=== PATIENT | male | born 1945 | race Caucasian/White ===

== ENCOUNTER 2020-07-23 08:25 | Inpatient (IN) | payer BC, MEDICARE ==
[2020-07-23] MEDS ORDERED: Temazepam 15 MG Cap PO PRN (14:21)
[2020-07-23] MEDS ORDERED: Docusate Sodium 100 MG Cap PO PRN (14:27)
[2020-07-23] MEDS ORDERED: Nitroglycerin 0.4 MG Tab.SL SL PRN (15:00)
[2020-07-23] MEDS ORDERED: Glucagon,Human Recombinant 1 MG Vial IM PRN (15:06)
[2020-07-23] MEDS ORDERED: 50% Dextrose in Water 50 ML Syringe IV PRN (15:06)
[2020-07-23] MEDS: Acetaminophen/oxyCODONE 325-5 MG Tab PO PRN (15:30)
--- NOTE | 2020-07-23 15:40 | PCM.HP.2 ---
H&P History of Present Illness - General Date of Service: 07/23/20 Admit Problem/Dx: Admission Diagnosis/Problem Admission Diagnosis/Problem Weakness Source of Information: Patient, Family (Daughter), Other ([facility] with limited transfer records from [facility]). No: Old Records (No [facility] records available) History Limitations: Reports: No Limitations - History of Present Illness Initial Comments - Free Text/Narative: The patient was brought to this facility for admission to swing bed care by his daughter via private automobile. Note that the patient recently had a non-STEMI on 07/08/2020 which did require a three-vessel CABG on 07/14/2020. No apparent complications, including required blood transfusions, etc. since that procedure with the patient transfer to this facility from [facility] for PT, OT, and further strengthening. He does complain of 5/10 sharp, throbbing chest wall pain secondary to his CABG with no local signs of infection. The patient denies any chest pressure, heart flutter, dizziness, orthostasis, orthopnea, diaphoresis, paresthesias,or any other anginal-type symptoms since the above surgery, although his overall exercise tolerance is still somewhat suboptimal at this time. No recent history of abdominal pain, heartburn, nausea, diarrhea, melena, gross hematochezia, or any food intolerance, including fatty foods, etc., although some occasional loose stools including earlier today. He denies any gross hematuria, colic, or other UTI symptoms. The patient also denies any recent fever, cough, wheezing, dyspnea, etc.. Onset of Symptoms: Reports: Gradual Symptom Onset Date: 07/08/20 Duration of Symptoms: Reports: Improving Location: Reports: Chest (Chest wall pain as above). Denies: Head, Face, Neck, Abdomen, Back, Pelvis, Upper Extremity, Left, Upper Extremity, Right, Radiates to Quality: Reports: Ache, Same as Previous Episode, Throbbing Severity: Moderate Improves with: Reports: Rest Worsens with: Reports: Movement Context: Reports: Other (As above) Associated Symptoms: Reports: Chest Pain (As above), Weakness. Denies: Confusion, Cough, cough w sputum, Diaphoresis, Fever/Chills, Headaches, Loss of Appetite, Nausea/Vomiting, Seizure, Shortness of Breath, Syncope Chest Pain Score (Numeric/FACES): 5 - Related Data Allergies/Adverse Reactions: Allergies Allergy/AdvReac Type Severity Reaction Status Date / Time procaine [From Novocain] Allergy Syncope Verified 07/23/20 12:21 Home Medications: Home Meds Acetaminophen [Tylenol Extra Strength] 1,000 mg PO BID PRN 07/23/20 [History] Aspirin [Halfprin] 81 mg PO DAILY 07/23/20 [History] Cinnamon Bark [Cinnamon] 500 mg PO BID 07/23/20 [History] Clopidogrel [Plavix] 75 mg PO DAILY 07/23/20 [History] Digoxin [Lanoxin] 125 mcg PO DAILY 07/23/20 [History] Docusate Sodium [Colace] 100 mg PO BID PRN 07/23/20 [History] Finasteride [Proscar] 5 mg PO DAILY 07/23/20 [History] Furosemide 20 mg PO DAILY 07/23/20 [History] Ketoconazole [Ketoconazole 2%] 1 applic TOP BID 07/23/20 [History] MO/Pet,Wh/Phenylephrine/Shk Lv [Preparation H Oint] 1 applic RC ASDIRECTED PRN 07/23/20 [History] Nitroglycerin 0.4 mg SL Q5M PRN MDD 3 07/23/20 [History] Non-Formulary Medication [NF Drug] 1 each PO BID 07/23/20 [History] Omeprazole 40 mg PO DAILY 07/23/20 [History] Tamsulosin HCl [Flomax] 0.4 mg PO DAILY 07/23/20 [History] Warfarin [Coumadin] 2.5 mg PO ONETIME 07/23/20 [History] atorvaSTATin [Lipitor] 40 mg PO BEDTIME 07/23/20 [History] carvediloL [Coreg] 25 mg PO BID 07/23/20 [History] glipiZIDE [Glucotrol] 10 mg PO BID 07/23/20 [History] lisinopriL [Lisinopril] 20 mg PO DAILY 07/23/20 [History] metFORMIN [Glucophage] 750 mg PO TIDMEALS 07/23/20 [History] oxyCODONE HCl/Acetaminophen [Oxycodone-Acetaminophen 5-325] 1 each PO Q6H PRN 07/23/20 [History] Past Medical History HEENT History: Reports: Hard of Hearing, Impaired Vision. Denies: Allergic Rhinitis, Cataract, Otitis Media, Retinal Detachment, Sinusitis, Other (See Below) Other HEENT History: Patient does wear glasses. Mild bilateral presbycusis with no current therapy. Cardiovascular History: Reports: Arrhythmia, Bypass, CAD, Cardiomyopathy, Heart Failure, High Cholesterol, Hypertension, OR, PTCA, Pulmonary Hypertension, PVD, Stents. Denies: Afib, Aneurysm, Blood Clots/VTE/DVT, Heart Murmur, Syncope Other Cardiovascular History: Unknown type of cardiac arrhythmia? PVCs. Left atrial enlargement, left ventricular enlargement, ischemic cardiomyopathy and initial non-STEMI with PTCA/stent x2 and 2004 and non-STEMI on 07/08/2020 which did require a CABG as below. CHF treated at the [facility]. Heart catheterization did show multivessel disease including 70-80% mid LAD stenosis, 95% second obtuse marginal stenosis and 70% proximal right CVA stenosis. Mild carotid occlusive disease by Doppler studies on 07/09/2020. Additional left- sided renal artery stenosis by renal duplex evaluation on 05/12/2003. Grade 2 diastolic dysfunction by distant echocardiogram. Respiratory History: Reports: COPD, Intubation, Previous. Denies: Asthma, Bronchitis, Recurrent, Intubation, Difficult, PE, Pneumonia, Recurrent, Pneumothorax, Sleep Apnea, TB Gastrointestinal History: Reports: Chronic Constipation, GERD, Hiatal Hernia. Denies: Celiac Disease, Cholelithiasis, Chronic Diarrhea, Colon Polyp, Diverticulosis, Fecal Incontinence, Gastritis, GI Bleed, Hemorrhoids, Hepatitis, Inflammatory Bowel Disease, Irritable Bowel Syndrome, Jaundice, Pancreatitis, PUD Genitourinary History: Reports: Acute Renal Failure, BPH, Renal Calculus, Other (See Below). Denies: Chronic Renal Insuffiency, Diabetic Nephropathy, Ret ention, Urinary, STD, Urinary Incontinence, UTI, Recurrent Other Genitourinary History: History of acute renal failure with higher doses of Metformin. Left-sided nephrolithiasis by renal ultrasound on 10/23/2013 with no history of urolithiasis. Musculoskeletal History: Reports: Arthritis, Back Pain, Chronic, Neck Pain, Chronic, Osteoarthritis. Denies: Amputation, Fracture, Gout, Osteoporosis, RA, SLE Neurological History: Reports: None. Denies: Alzheimers Disease, Cerebral Aneurysms, Concussion, CVA, Headaches, Chronic, Head Trauma, Migraines, MS, Neuropathy, Diabetic, Neuropathy, Peripheral, Parkinson's, Seizure, TIA, Vertigo Psychiatric History: Reports: None. Denies: Abuse, Victim of, ADD, ADHD, Addiction, Alzheimers Disease, Anxiety, Dementia, Depression, Psych Hospitalization(s), PTSD, Suicide Attempt, Suicidal Ideation Endocrine/Metabolic History: Reports: Diabetes, Type II, Other (See Below). Denies: Diabetes, Type I, Diabetes Mellitus, Type 3c, Hypothyroidism, IDDM, Obesity/BMI 30+ Other Endocrine/Metabolic History: No previous insulin requirement although sliding scale requirement during hospitalization for recent CABG and June 2020. Hematologic History: Reports: None. Denies: Anemia, B12 Deficiency, Blood Transfusion(s), Iron Deficiency Immunologic History: Reports: None. Denies: AIDS, SLE Oncologic (Cancer) History: Reports: None. Denies: Basal Cell Carcinoma, Bladder, Colon, Hodgkin's Lymphoma, Leukemia, Lung, Lymphoma, Malignant Melanoma, Non-Hodgkin's Lymphoma, Prostate, Squamous Cell Carcinoma Dermatologic History: Reports: None. Denies: Eczema, Psoriasis - Infectious Disease History Infectious Disease History: Reports: Chicken Pox, Mumps, Shingles (Right back region in about 2009.). Denies: C-Difficile, Measles, Meningitis, Mononucleosis, MRSA, Novel Coronavirus, Pertussis (Whooping Cough), Rheumatic Fever, Rubella, Scarlet Fever, TB, VRE - Past Surgical History Head Surgeries/Procedures: Reports: None HEENT Surgical History: Reports: None, Oral Surgery, Other (See Below). Denies: Adenoidectomy, Eye Surgery, Laser Surgery, LASIK, Myringotomy w Tube(s), Radiocarotid Ectomy, Tonsillectomy Other HEENT Surgeries/Procedures: Complete teeth extraction with complete dentures uppers and lowers. Cardiovascular Surgical History: Reports: Carotid Stents, Coronary Artery Bypass, Percutaneous Transluminal Angioplasty, Other (See Below). Denies: Varicose Other Cardiovascular Surgeries/Procedures: CABG x4 on 07/14/2020. PTCA/stent x2 in 2004. Respiratory Surgical History: Reports: None. Denies: Thoracentesis GI Surgical History: Reports: Appendectomy, Colonoscopy, Hernia, Inguinal, Other (See Below). Denies: Cholecystectomy, EGD, Hernia, Abdominal, Hernia Re pair/Other, Polypectomy, Small Bowel Other GI Surgeries/Procedures: Appendectomy at about age 6. Colonoscopy in about 2015. Right inguinal hernia repair in about 2018. Male Surgical History: Reports: Circumcision, Other (See Below). Denies: TURP-Transurethral Resection of Prostate, Vasectomy Other Male Surgeries/Procedures: Circumcision as an infant. Neurological Surgical History: Reports: None. Denies: C-Spine, Discectomy, Laminectomy, Lumbar Spine, Sacral Spine, Spinal Fusion, Thoracic Spine, Vertebroplasty Musculoskeletal Surgical History: Reports: Carpal Tunnel, Other (See Below). Denies: Arthroscopic Procedure, Joint Replacement, ORIF, Shoulder Surgery Other Musculoskeletal Surgeries/Procedures:: Bilateral carpal tunnel release in about 2018. Oncologic Surgical History: Reports: None Dermatological Surgical History: Reports: None - Past Imaging History Past Imaging History: Reports: Angiography (Heart catheterization none 07/08/2020 with findings as above.), Cardiac Echo (Last echocardiogram on 07/20/2020 showed ejection fraction of 35-40% with previous evaluations on 07/14/2020 and 07/08/2020.), Carotid US (07/09/2020.), PFT (Bedside PFTs on 07/09/2020.), Stress Testing (Cardiolite stress test on 05/13/2005, 07/21/2004, and 07/03/2002. Note evidence of cardiomyopathy with ejection fraction of 47% on 05/13/2005 and 39% on 05/13/2005.), Ultrasound (Ultrasound of the legs bilaterally for vein mapping on 07/09/2020. Bilateral renal ultrasound on 10/23/2013 on 02/26/2003. Renal duplex evaluation on 05/12/2003) Social & Family History - Family History HEENT: Reports: None. Denies: Glaucoma, Macular Degeneration, Retinal Detachment Cardiac: Reports: CAD, OR, Other (See Below). Denies: Afib, Aneurysm, Arrhythmia, Blood Clots/VTE/DVT, High Cholesterol, Hypertension, Syncope Other Cardiac Family History: Maternal uncle with fatal OR in his 50s. Respiratory: Reports: Asthma, Other (See Below). Denies: COPD, PE, Pneumothorax, Sleep Apnea Other Respiratory Family Hisory: Asthma in son and daughter. GI: Reports: None. Denies: Cholelithiasis, Colon Polyps, GERD, GI bleed, Inflammatory Bowel Disease, Irritable Bowel Syndrome, PUD : Reports: None. Denies: Renal Calculus, Renal Disease/Insufficiency OBGYN: Reports: None Musculoskeletal: Reports: Arthritis, Osteoarthritis, RA, Other (See Below) Other Musculoskeletal Family History: Daughter with rheumatoid arthritis. Neurological: Reports: Migraines, Other (See Below). Denies: Alzheimers Disease, CVA, Dementia, MS, Neuropathy, Peripheral, Parkinson's, Seizure, TIA Other Neurological Family History: Daughters x2 with migraine headaches. Psychiatric: Reports: Anxiety, Depression, Other (See Below). Denies: Abuse, Victim of, ADD, ADHD, Psych Hospitalization(s), PTSD, Suicide Attempt Other Psychiatric Family History: Daughter with anxiety depression disorder. Endocrine/Metabolic: Reports: Hypothyroidism, Obesity/MBI 30+, Other (See Below). Denies: Newman's Disease, Diabetes, Gestational, Diabetes, Type I, Diabetes, type II, Diabetes Mellitus, Type 3c, IDDM Other Endocrine/Metabolic Family History: Daughters x2 with obesity. Daughter with hypothyroidism. Hematologic: Reports: None. Denies: Anemia, SLE Immunologic: Reports: None. Denies: AIDS, HIV, SLE Dermatologic: Reports: None. Denies: Eczema, Psoriasis Oncologic: Reports: Breast, Liver, Metastatic, Other (See Below) Other Oncologic Family History: Daughter with breast cancer at age 31. Mother with fatal hepatic metastases from unknown type of cancer at age 81. - Tobacco Use Tobacco Use Status *Q: Former Tobacco User Tobacco Use Within Last Twelve Months: No Years of Tobacco use: 17 Packs/Tins Daily: 2 Packs/Tins Daily Comment: Smoked between ages 16 and 33. Used Tobacco, but Quit: Yes Smoking Cessation Information Provided To Patient: No Second Hand Smoke Exposure: No Second Hand Smoke Education Provided: No - Caffeine Use Caffeine Use: Reports: Coffee (3 cups/day), Soda (4 sodas per day), Tea (Occasional). Denies: Energy Drinks - Alcohol Use Alcohol Use History: No Days Per Week of Alcohol Use: 0 Number of Drinks Per Day: 0 Number of Drinks Per Day Comment: No previous DWIs, problems with alcohol abuse, etc. 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 Exam - Exam Exam: See Below - Vital Signs Vital Signs: Last Vital Signs Temp 36.6 C 07/23/20 14:22 Pulse 71 07/23/20 14:22 Resp 18 07/23/20 14:22 BP 138/48 L 07/23/20 14:22 Pulse Ox 99 07/23/20 14:22 Weight: 75.432 kg - Exam Quality Assessment: DVT Prophylaxis (Coumadin). No: Supplemental Oxygen, Central Line/PICC, Urinary Catheter, Skin Breakdown, Restraints General: Alert, Oriented, Cooperative HEENT: Conjunctiva Clear, EACs Clear, EOMI, Hearing Intact, Mucosa Moist & [place], Nares Patent, Normal Nasal Septum, Posterior Pharynx Clear, Pupils Equal, Pupils Reactive, TMs Clear, Glasses, Other (Patient is wearing glasses), PERRLA Neck: Supple, Trachea Midline, Carotid Bruit (Mild bilateral carotid bruits). No: Lymphadenopathy, JVD, Thyromegaly Lungs: Normal Respiratory Effort, Rales (Mild bilateral basilar), Other (Medial sternotomy incision is intact, clean, and dry with no evidence of infection). No: Rhonchi, Rub, Wheezing Cardiovascular: Regular Rate, Normal S1, Normal S2. No: Regular Rhythm (Occasional extrasystoles), Diastolic Murmur, Rubs, Gallop/S3, Gallop/S4 GI/Abdominal Exam: Normal Bowel Sounds, Soft, Non-Tender, No Organomegaly, No Distention, No Abnormal Bruit, No Mass, Pelvis Stable, Other (Epigastric incisions show no evidence of infection after recent CABG). No: Guarding (Male) Exam: Deferred Rectal (Males) Exam: Deferred Back Exam: Normal Inspection, Full Range of Motion. No: CVA Tenderness (L), CVA Tenderness (R), Muscle Spasm Extremities: Normal Inspection, Normal Range of Motion, Non-Tender, No Pedal Edema, Normal Capillary Refill. No: Kenji's Sign Peripheral Pulses: 2+: Radial (L), Radial (R), Dorsalis Pedis (L), Dorsalis Ped is (R) Skin: Ecchymosis (Moderate postoperative ecchymosis in the chest and abdominal region without petechiae, etc.), Wound (As above), Incision (As above) Neurological: Cranial Nerves Intact, Reflexes Equal Bilateral, Babinski Absent Neuro Extensive - Mental Status: Alert, Oriented x3, Normal Mood/Affect, Normal Cognition, Memory Intact Psychiatric: Alert, Normal Affect, Normal Mood. No: Agitated, Hallucinations, Withdrawal Symptoms - Patient Data Lab Results Last 24 hrs: To be conducted on 07/24/2020 Sepsis Event Note - Focused Exam Vital Signs: Vital Signs Temp Pulse Resp BP Pulse Ox 07/23/20 14:22 36.6 C 71 18 138/48 L 99 - Problem List (1) Weakness SNOMED Code(s): 19522170 ICD Code: R53.1 - WEAKNESS Status: Acute Priority: High Current Visit: Yes Onset Date: ~07/14/20 Problem Details: Generalized weakness secondary to recent four-vessel CABG with patient transfer to our facility from [facility] for further strengthening, PT, and OT. Advance activity slowly per their direction. (2) Coronary artery disease SNOMED Code(s): 32901144 ICD Code: I25.10 - ATHSCL HEART DISEASE OF [place] CORONARY ARTERY W/O ANG PCTRS Status: Chronic Priority: High Current Visit: Yes Problem Details: Previous PTCA/stent x2 with recent four-vessel CABG on 07/14/2020 as above. We did confirm with the providers at [facility] that they do wish to continue Coumadin, Plavix, and aspirin. Daily INRs per their instructions with further Coumadin adjustment depending on his clinical course. Qualifiers: Coronary Disease-Associated Artery/Lesion type: bypass graft [place] vs. transplanted heart: [place] heart Associated angina: without angina Qualified Code(s): I25.810 - Atherosclerosis of coronary artery bypass graft(s) without angina pectoris (3) CHF (congestive heart failure) SNOMED Code(s): 02673444 ICD Code: I50.9 - HEART FAILURE, UNSPECIFIED Status: Chronic Priority: Medium Current Visit: Yes Problem Details: Chest x-ray and BNP to be conducted tomorrow. No clinical evidence of significant CHF. Note recent echocardiogram on 07/20/2020. No ELISABETH inhibitor's or angiotensin II receptor huong secondary to his renal artery stenosis as above. Patient is on digoxin with therapeutic level to be drawn tomorrow. Continue to observe closely s econdary to concomitant digoxin and previous history of distant grade 2 diastolic dysfunction with relative contraindication of digoxin with this condition. Qualifiers: Heart failure type: combined systolic and diastolic Heart failure chronicity: chronic Qualified Code(s): I50.42 - Chronic combined systolic (congestive) and diastolic (congestive) heart failure (4) Arrhythmia SNOMED Code(s): 286322254 ICD Code: I49.9 - CARDIAC ARRHYTHMIA, UNSPECIFIED Status: Chronic Priority: Medium Current Visit: Yes Problem Details: Unknown type of previous cardiac arrhythmia, however suspect intermittent atrial fibrillation secondary to his current Coumadin therapy. EKG to be conducted in the a.m. Qualifiers: Arrhythmia type: unspecified cardiac arrhythmia Qualified Code(s): I49.9 - Cardiac arrhythmia, unspecified (5) Hypertension SNOMED Code(s): 24654819 ICD Code: I10 - ESSENTIAL (PRIMARY) HYPERTENSION Status: Chronic Priority: Medium Current Visit: Yes Problem Details: Continue to observe closely during his swing bed care. Note history of left renal artery stenosis. Qualifiers: Hypertension type: essential hypertension Qualified Code(s): I10 - Essential (primary) hypertension (6) Hyperlipidemia SNOMED Code(s): 12614917 ICD Code: E78.5 - HYPERLIPIDEMIA, UNSPECIFIED Status: Chronic Priority: Medium Current Visit: Yes Problem Details: Currently under therapy. Continue to observe closely by regular providers. Qualifiers: Hyperlipidemia type: unspecified Qualified Code(s): E78.5 - Hyperlipidemia, unspecified (7) Diabetes mellitus SNOMED Code(s): 46215417 ICD Code: E11.9 - TYPE 2 DIABETES MELLITUS WITHOUT COMPLICATIONS Status: Chronic Priority: Medium Current Visit: Yes Problem Details: Sliding scale was required during recent hospitalization with this to be continued on a 3 times daily rather than 4 times a day basis for now secondary to his some nocturnal hypoglycemia based on his family's history. No previous insulin requirement. Caution with Metformin therapy with history of acute renal failure when this medication was increased to the 1000 mg dose per family history. Qualifiers: Diabetes mellitus type: type 2 Diabetes mellitus chcf insulin use: without chcf use Diabetes mellitus complication status: without complication Qualified Code(s): E11.9 - Type 2 diabetes mellitus without complications (8) Osteoarthritis SNOMED Code(s): 439322765 ICD Code: M19.90 - UNSPECIFIED OSTEOARTHRITIS, UNSPECIFIED SITE Status: Chronic Priority: Medium Current Visit: Yes Problem Details: Stable by history Qualifiers: Osteoarthritis location: multiple joints (9) Peptic ulcer disease SNOMED Code(s): 35872835 ICD Code: K27.9 - PEPTIC ULC, SITE UNSP, UNSP AC OR CHR, W/O HEMOR OR PERF Status: Chronic Priority: Medium Current Visit: Yes Problem Details: Stable by history. Secondary to his heart disease his previously prescribed Prilosec will be changed to Pepcid. Problem List Initiated/Reviewed/Updated: Yes Orders Last 24hrs: Active Orders 24 hr Category Date Time Status Patient Status [ADT] Routine ADT 07/23/20 14:22 Active Blood Glucose Check, Bedside [RC] STAT Care 07/24/20 03:00 Active Blood Glucose Check, Bedside [RC] TIDAC Care 07/23/20 17:30 Active Communication Order [RC] ROUTINE Care 07/23/20 14:35 Active Communication Order [RC] ROUTINE Care 07/23/20 14:36 Active Communication Order [RC] ROUTINE Care 07/23/20 14:36 Active EKG Documentation Completion [RC] ASDIRECTED Care 07/24/20 05:11 Active Height and Weight [RC] PER UNIT ROUTINE Care 07/23/20 14:23 Active Intake and Output [RC] QSHIFT Care 07/23/20 14:23 Active Oxygen Therapy [RC] PRN Care 07/23/20 14:22 Active Up With Assistance [RC] ASDIRECTED Care 07/23/20 14:21 Active VTE/DVT Education [RC] PER UNIT ROUTINE Care 07/23/20 14:22 Active Vital Signs [RC] PER UNIT ROUTINE Care 07/23/20 14:22 Active Consult to Case Management/Oil Field Rig Builder [CONS] Cons 07/23/20 14:21 Active Routine OT Evaluation and Treatment [CONS] Routine Cons 07/23/20 14:21 Active PT Evaluation and Treatment [CONS] Routine Cons 07/23/20 14:21 Active Fluid Restriction [DIET] Diet 07/23/20 Dinner Active Chest 2V [CR] Routine Exams 07/24/20 05:11 Ordered CBC WITH AUTO DIFF [HEME] Routine Lab 07/24/20 14:00 Ordered COMPREHENSIVE METABOLIC PN,CMP [CHEM] Routine Lab 07/24/20 14:00 Ordered DIGOXIN [CHEM] Routine Lab 07/24/20 14:00 Ordered INR,PT,PROTHROMBIN TIME [COAG] DAILY Lab 07/25/20 05:11 Ordered INR,PT,PROTHROMBIN TIME [COAG] DAILY Lab 07/26/20 05:11 Ordered INR,PT,PROTHROMBIN TIME [COAG] DAILY Lab 07/27/20 05:11 Ordered INR,PT,PROTHROMBIN TIME [COAG] DAILY Lab 07/28/20 05:11 Ordered INR,PT,PROTHROMBIN TIME [COAG] DAILY Lab 07/29/20 05:11 Ordered INR,PT,PROTHROMBIN TIME [COAG] Routine Lab 07/24/20 14:00 Ordered MAGNESIUM [CHEM] Routine Lab 07/24/20 14:00 Ordered PRO B-TYPE NATRIUR PEPT,BNPPRO [CHEM] Routine Lab 07/24/20 14:00 Ordered URIC ACID [CHEM] Routine Lab 07/24/20 14:00 Ordered Acetaminophen [Tylenol Extra Strength] Med 07/23/20 14:27 Active 1,000 mg PO BID PRN Acetaminophen/oxyCODONE [Percocet 325-5 MG] Med 07/23/20 15:00 Active 1 tab PO Q6H PRN Aspirin [Halfprin] Med 07/24/20 08:00 Active 81 mg PO DAILY Cinnamon Bark [Cinnamon] Med 07/23/20 18:00 Pending 500 mg PO BID Clopidogrel [Plavix] Med 07/24/20 08:00 Active 75 mg PO DAILY Dextrose 50% in Water Med 07/23/20 15:06 Ordered 50 ml IV ASDIRECTED PRN Digoxin [Lanoxin] Med 07/24/20 08:00 Active 125 mcg PO DAILY Docusate Sodium [Colace] Med 07/23/20 14:27 Active 100 mg PO BID PRN Famotidine [Pepcid] Med 07/24/20 08:00 Ordered 20 mg PO DAILY Finasteride [Proscar] Med 07/24/20 08:00 Active 5 mg PO DAILY Furosemide [Lasix] Med 07/24/20 08:00 Active 20 mg PO DAILY Glucagon,Human Recombinant [GlucaGen] Med 07/23/20 15:06 Ordered 1 mg IM ASDIRECTED PRN Insulin Lispro [HumaLOG] Med 07/23/20 17:30 Ordered See Protocol SUBCUT TIDAC Ketoconazole [Nizoral 2% Crm] Med 07/23/20 18:00 Active 0 gm TOP BID MO/Pet,Wh/Phenylephrine/Shk Lv [Preparation H Oint] Med 07/23/20 14:27 Active 0 gm RECTAL ASDIRECTED PRN Nitroglycerin [Nitrostat] Med 07/23/20 15:00 Active 0.4 mg SL Q5M PRN Non-Formulary Medication [NF Drug] Med 07/23/20 18:00 Pending 1 each PO BID Omeprazole [Omeprazole] Med 07/24/20 08:00 Pending 40 mg PO DAILY Tamsulosin [Flomax] Med 07/24/20 08:00 Active 0.4 mg PO DAILY Temazepam [Restoril] Med 07/23/20 14:21 Active 15 mg PO BEDTIME PRN Warfarin [Coumadin] Med 07/23/20 17:00 Once 2.5 mg PO ONETIME ONE atorvaSTATin [Lipitor] Med 07/23/20 20:00 Active 40 mg PO BEDTIME carvediloL [Coreg] Med 07/23/20 18:00 Active 25 mg PO BID glipiZIDE [Glucotrol] Med 07/23/20 18:00 Active 10 mg PO BID lisinopriL [Prinivil] Med 07/24/20 08:00 Active 20 mg PO DAILY metFORMIN [Glucophage] Med 07/23/20 18:00 Active 750 mg PO TIDMEALS Patient May Not [OM.PC] Click to Edit Oth 07/23/20 14:21 Ordered Resuscitation Status Routine Resus Stat 07/23/20 14:21 Ordered EKG 12 Lead [EK] Routine Ther 07/24/20 05:11 Ordered Medication Orders Acetaminophen (Acetaminophen 500 Mg Tab) 1,000 mg PO BID PRN PRN Reason: Pain Aspirin (Aspirin 81 Mg Tab.Ec) 81 mg PO DAILY [facility] Atorvastatin Calcium (Atorvastatin 40 Mg Tab) 40 mg PO BEDTIME [facility] Carvedilol (Carvedilol 25 Mg Tab) 25 mg PO BID [facility] Clopidogrel Bisulfate (Clopidogrel 75 Mg Tab) 75 mg PO DAILY [facility] Dextrose/Water (50% Dextrose In Water 50 Ml Syringe) 50 ml IV ASDIRECTED PRN PRN Reason: Hypoglycemia Digoxin (Digoxin 125 Mcg Tab) 125 mcg PO DAILY [facility] Docusate Sodium (Docusate Sodium 100 Mg Cap) 100 mg PO BID PRN PRN Reason: Constipation Famotidine (Famotidine 20 Mg Tab) 20 mg PO DAILY [facility] Finasteride (Finasteride 5 Mg Tab) 5 mg PO DAILY [facility] Furosemide (Furosemide 20 Mg Tab) 20 mg PO DAILY [facility] Glipizide (Glipizide 5 Mg Tab) 10 mg PO BID [facility] Glucagon (Glucagon,Human Recombinant 1 Mg Vial) 1 mg IM ASDIRECTED PRN PRN Reason: Hypoglycemia Insulin Human Lispro (Insulin Lispro 100 Units/Ml 3 Ml Vial) 0 unit SUBCUT TIDAC [facility]; Protocol Ketoconazole (Ketoconazole 2% Crm 30 Gm Tube) 0 gm TOP BID [facility] Lisinopril (Lisinopril 20 Mg Tab) 20 mg PO DAILY [facility] Metformin HCl (Metformin 500 Mg Tab) 750 mg PO TIDMEALS [facility] Nitroglycerin (Nitroglycerin 0.4 Mg Tab.Sl) 0.4 mg SL Q5M PRN PRN Reason: Angina Non-Formulary Medication (Cinnamon Bark [Cinnamon]) 500 mg PO BID [facility] Non-Formulary Medication (Non-Formulary Medication 1 Each) 1 each PO BID [facility] Non-Formulary Medication (Omeprazole [Omeprazole]) 40 mg PO DAILY [facility] Oxycodone/Acetaminophen (Acetaminophen/Oxycodone 325-5 Mg Tab) 1 tab PO Q6H PRN PRN Reason: Pain Last Admin: 07/23/20 15:30 Dose: 1 tab Documented by: CALIN Phenyleph/Shark Oil/Min Oil/Petrol (Mineral Oil/Petrolatum/Phenylephrine/Shark Liver Oil Oint 57 Gm Tube) 0 gm RECTAL ASDIRECTED PRN PRN Reason: Hemorrhoids Tamsulosin HCl (Tamsulosin 0.4 Mg Cap.Er) 0.4 mg PO DAILY [facility] Temazepam (Temazepam 15 Mg Cap) 15 mg PO BEDTIME PRN PRN Reason: Sleep Warfarin Sodium (Warfarin 2.5 Mg Tab) 2.5 mg PO ONETIME ONE Stop: 07/23/20 17:01 Assessment/Plan Comment:: As above. Extensive precautions were given to the patient and his 2 daughters, who are in agreement with the treatment plan. - Mortality Measure Prognosis:: Good
[2020-07-23] MEDS ORDERED: Warfarin 2.5 MG Tab PO ONE (17:00)
[2020-07-23] MEDS: metFORMIN 500 MG Tab PO SCH (18:10)
[2020-07-23] MEDS: glipiZIDE 5 MG Tab PO SCH (18:10)
[2020-07-23] MEDS: Carvedilol 25 MG Tab PO SCH (18:11)
[2020-07-23] MEDS: Insulin Lispro 100 Units/ML 3 ML Vial SUBCUT SCH (18:14)
[2020-07-23] MEDS: Ketoconazole 2% Crm 30 GM Tube TOP SCH (18:15)
[2020-07-23] MEDS: [UNRECOGNIZED DRUG - OTHER] PO SCH (18:29)
[2020-07-23] MEDS: atorvaSTATin 40 MG Tab PO SCH (19:26)
[2020-07-23] MEDS: Mineral Oil/Petrolatum/Phenylephrine/Shark Liver Oil Oint 57 GM Tube RECTAL PRN (19:27)
[2020-07-24] MEDS: Mineral Oil/Petrolatum/Phenylephrine/Shark Liver Oil Oint 57 GM Tube RECTAL PRN ×4 (01:35→17:55)
[2020-07-24] MEDS: Insulin Lispro 100 Units/ML 3 ML Vial SUBCUT SCH ×3 (07:38→17:26)
[2020-07-24] MEDS ORDERED: Non-Formulary Medication 1 Each (Omeprazole [Omeprazole] 40 MG Capsule.Dr) PO SCH (08:00)
[2020-07-24] MEDS ORDERED: Furosemide 20 MG Tab PO SCH (08:00)
[2020-07-24] MEDS: Ketoconazole 2% Crm 30 GM Tube TOP SCH ×2 (08:23→17:55)
[2020-07-24] MEDS: CINNAMON 1000 MG PO SCH ×2 (08:24→17:41)
[2020-07-24] MEDS: [UNRECOGNIZED DRUG - OTHER] PO SCH ×2 (08:25→17:42)
[2020-07-24] MEDS: Famotidine 20 MG Tab PO SCH (08:27)
[2020-07-24] MEDS: Acetaminophen/oxyCODONE 325-5 MG Tab PO PRN ×2 (08:28→20:58)
[2020-07-24] MEDS: Digoxin 125 MCG Tab PO SCH (08:31)
[2020-07-24] MEDS: Tamsulosin 0.4 MG Cap.ER PO SCH (08:31)
[2020-07-24] MEDS: Clopidogrel 75 MG Tab PO SCH (08:31)
[2020-07-24] MEDS: Aspirin 81 MG Tab.EC PO SCH (08:31)
[2020-07-24] MEDS: Carvedilol 25 MG Tab PO SCH ×2 (08:32→17:38)
[2020-07-24] MEDS: Lisinopril 20 MG Tab PO SCH (08:32)
[2020-07-24] MEDS: metFORMIN 500 MG Tab PO SCH ×3 (08:33→17:39)
[2020-07-24] MEDS: glipiZIDE 5 MG Tab PO SCH ×2 (08:33→17:40)
[2020-07-24] MEDS: Finasteride 5 MG Tab PO SCH (08:36)
[2020-07-24] MEDS: Acetaminophen 500 MG Tab PO PRN (12:49)
[2020-07-24] MEDS: Ketoconazole 2% Crm 30 GM Tube TOP PRN (12:49)
[2020-07-24 14:21] LABS: CHLORIDE,CL 104 mmol/L (98-107); SODIUM,NA 137 mmol/L (136-145)
--- NOTE | 2020-07-24 15:22 | PCM.SN.2 ---
- Free Text/Narrative Note: Blood work results from this afternoon were reviewed. INR is therapeutic at 2.8. Note history of brief postoperative atrial fibrillation with initiation of Coumadin therapy after recent CABG with no previous history of significant arrhythmia or Coumadin therapy. Patient normally gets his [facility] through the [facility] [place]. 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 This was discussed earlier today with his daughter, Marine. Secondary to recent CABG his Coumadin will be decreased to 2 mg this afternoon with daily INRs and daily Coumadin orders already in effect. Other pertinent findings in today's blood work include a mildly elevated WBC of 13.0 with no signs of infection or current fever. Hemoglobin 10.4 with no evidence of acute bleeding. Uric acid level 8.2, which will need to be observed closely secondary to increase of his Lasix therapy from current 20 mg daily to 40 mg daily starting on 07/25. Note small left pleural effusion and today's chest x-ray as [place] 480[address] [place]. AST mildly elevated to 87 likely secondary to his CHF. Magnesium level was also decreased at 1.6 with initiation of magnesium oxide on a twice daily basis starting this afternoon. Albumin level decreased to 2.5, which will be watched for now. Therapeutic digoxin level is mildly subtherapeutic at 0.76, although no change in this medical therapy for now secondary to his history of grade 2 diastolic dysfunction. Low-dose potassium will also be started tomorrow morning secondary to his increased Lasix therapy with caution in light of his current ELISABETH inhibitor therapy. Blood work will be repeated on 07/27 at time when I resume the patient's care with the [facility] physician watching the patient over the weekend. Chest x-ray report from 07/24/2020 shows status post medial sternotomy with small left pleural effusion but no other evidence of significant CHF, pulmonary infiltrates, etc. EKG on 07/24/2020 at 9:07 AM shows a sinus rhythm with occasional PVCs noted with a heart rate of 80. MS interval 0.20 seconds representing a borderline first- degree AV block. QRS interval of 0.09 seconds. Diffuse T wave inversion in leads I, II, III, aVF, and V4 through V6 consistent with probable inferolateral cardiac ischemia. No post operative/post CABG EKG is available for comparison. No chest pain or anginal complaints. Continue to observe closely for now. Accu-Cheks are under good control with continuation of sliding scale for now, however no previous insulin therapy prior to above recent CABG. Vital signs are stable although mildly elevated blood pressures this afternoon. Continue vitals on a every shift basis.
[2020-07-24] MEDS: Magnesium Oxide 400 MG Tab PO SCH (17:39)
[2020-07-24] MEDS ORDERED: Warfarin 2 MG Tab PO ONE (18:00)
[2020-07-24] MEDS: atorvaSTATin 40 MG Tab PO SCH (20:58)
[2020-07-25] MEDS: Acetaminophen/oxyCODONE 325-5 MG Tab PO PRN ×4 (04:42→23:06)
[2020-07-25] MEDS: Insulin Lispro 100 Units/ML 3 ML Vial SUBCUT SCH ×3 (07:24→17:04)
[2020-07-25] MEDS: Acetaminophen 500 MG Tab PO PRN (07:25)
[2020-07-25] MEDS: glipiZIDE 5 MG Tab PO SCH ×2 (07:26→17:02)
[2020-07-25] MEDS: Finasteride 5 MG Tab PO SCH (07:26)
[2020-07-25] MEDS: metFORMIN 500 MG Tab PO SCH ×3 (07:27→17:03)
[2020-07-25] MEDS: Lisinopril 20 MG Tab PO SCH (07:27)
[2020-07-25] MEDS: Magnesium Oxide 400 MG Tab PO SCH ×2 (07:27→17:04)
[2020-07-25] MEDS: Aspirin 81 MG Tab.EC PO SCH (07:27)
[2020-07-25] MEDS: Famotidine 20 MG Tab PO SCH (07:28)
[2020-07-25] MEDS: Digoxin 125 MCG Tab PO SCH (07:28)
[2020-07-25] MEDS: Potassium Chloride 20 MEQ Tab.ER PO SCH (07:28)
[2020-07-25] MEDS: Tamsulosin 0.4 MG Cap.ER PO SCH (07:28)
[2020-07-25] MEDS: Furosemide 20 MG Tab PO SCH (07:28)
[2020-07-25] MEDS: Clopidogrel 75 MG Tab PO SCH (07:28)
[2020-07-25] MEDS: CINNAMON 1000 MG PO SCH ×2 (07:29→17:04)
[2020-07-25] MEDS: Carvedilol 25 MG Tab PO SCH ×2 (07:29→17:03)
[2020-07-25] MEDS: [UNRECOGNIZED DRUG - OTHER] PO SCH ×2 (07:30→17:04)
[2020-07-25] MEDS: Ketoconazole 2% Crm 30 GM Tube TOP SCH ×2 (07:30→17:04)
[2020-07-25] MEDS ORDERED: Warfarin 2 MG Tab PO ONE (18:00)
[2020-07-25] MEDS: atorvaSTATin 40 MG Tab PO SCH (19:13)
[2020-07-25] MEDS: Aluminum Hydroxide/Magnesium Hydroxide/Simethicone Susp 30 ML Cup PO PRN (22:13)
[2020-07-25] MEDS: Ketoconazole 2% Crm 30 GM Tube TOP PRN (22:15)
[2020-07-26] MEDS: Acetaminophen/oxyCODONE 325-5 MG Tab PO PRN ×3 (06:15→22:25)
[2020-07-26] MEDS: Mineral Oil/Petrolatum/Phenylephrine/Shark Liver Oil Oint 57 GM Tube RECTAL PRN (06:15)
[2020-07-26] MEDS: Ketoconazole 2% Crm 30 GM Tube TOP PRN (06:16)
[2020-07-26] MEDS: metFORMIN 500 MG Tab PO SCH ×3 (07:23→17:04)
[2020-07-26] MEDS: [UNRECOGNIZED DRUG - OTHER] PO SCH ×2 (07:23→17:04)
[2020-07-26] MEDS: Lisinopril 20 MG Tab PO SCH (07:23)
[2020-07-26] MEDS: CINNAMON 1000 MG PO SCH ×2 (07:23→17:04)
[2020-07-26] MEDS: Furosemide 20 MG Tab PO SCH (07:23)
[2020-07-26] MEDS: Magnesium Oxide 400 MG Tab PO SCH ×2 (07:23→17:04)
[2020-07-26] MEDS: glipiZIDE 5 MG Tab PO SCH ×2 (07:23→17:03)
[2020-07-26] MEDS: Carvedilol 25 MG Tab PO SCH ×2 (07:24→17:04)
[2020-07-26] MEDS: Potassium Chloride 20 MEQ Tab.ER PO SCH (07:24)
[2020-07-26] MEDS: Digoxin 125 MCG Tab PO SCH (07:24)
[2020-07-26] MEDS: Famotidine 20 MG Tab PO SCH (07:24)
[2020-07-26] MEDS: Clopidogrel 75 MG Tab PO SCH (07:24)
[2020-07-26] MEDS: Tamsulosin 0.4 MG Cap.ER PO SCH (07:24)
[2020-07-26] MEDS: Finasteride 5 MG Tab PO SCH (07:24)
[2020-07-26] MEDS: Aspirin 81 MG Tab.EC PO SCH (07:24)
[2020-07-26] MEDS: Ketoconazole 2% Crm 30 GM Tube TOP SCH ×2 (07:25→17:05)
[2020-07-26] MEDS: Insulin Lispro 100 Units/ML 3 ML Vial SUBCUT SCH ×3 (07:29→17:04)
[2020-07-26] MEDS: Aluminum Hydroxide/Magnesium Hydroxide/Simethicone Susp 30 ML Cup PO PRN ×2 (17:02→22:25)
[2020-07-26] MEDS ORDERED: Warfarin 2 MG Tab PO ONE (18:00)
[2020-07-26] MEDS: atorvaSTATin 40 MG Tab PO SCH (19:25)
[2020-07-27] MEDS: Acetaminophen/oxyCODONE 325-5 MG Tab PO PRN ×3 (04:36→22:25)
[2020-07-27] MEDS: Clopidogrel 75 MG Tab PO SCH (07:39)
[2020-07-27] MEDS: Lisinopril 20 MG Tab PO SCH (07:39)
[2020-07-27] MEDS: Digoxin 125 MCG Tab PO SCH (07:39)
[2020-07-27] MEDS: Potassium Chloride 20 MEQ Tab.ER PO SCH (07:39)
[2020-07-27] MEDS: Furosemide 20 MG Tab PO SCH (07:39)
[2020-07-27] MEDS: Finasteride 5 MG Tab PO SCH (07:40)
[2020-07-27] MEDS: Aspirin 81 MG Tab.EC PO SCH (07:40)
[2020-07-27] MEDS: Famotidine 20 MG Tab PO SCH (07:40)
[2020-07-27] MEDS: Carvedilol 25 MG Tab PO SCH ×2 (07:40→17:43)
[2020-07-27] MEDS: Tamsulosin 0.4 MG Cap.ER PO SCH (07:40)
[2020-07-27] MEDS: Magnesium Oxide 400 MG Tab PO SCH ×2 (07:40→17:42)
[2020-07-27] MEDS: [UNRECOGNIZED DRUG - OTHER] PO SCH ×2 (07:48→17:45)
[2020-07-27] MEDS: CINNAMON 1000 MG PO SCH ×2 (07:48→17:45)
[2020-07-27] MEDS: Insulin Lispro 100 Units/ML 3 ML Vial SUBCUT SCH ×3 (07:48→17:46)
[2020-07-27] MEDS: Mineral Oil/Petrolatum/Phenylephrine/Shark Liver Oil Oint 57 GM Tube RECTAL PRN ×2 (07:50→17:46)
[2020-07-27] MEDS: Ketoconazole 2% Crm 30 GM Tube TOP SCH ×2 (07:50→17:46)
[2020-07-27] MEDS: Acetaminophen 500 MG Tab PO PRN (07:52)
[2020-07-27 08:22] LABS: CHLORIDE,CL 102 mmol/L (98-107); SODIUM,NA 137 mmol/L (136-145)
[2020-07-27] MEDS: glipiZIDE 5 MG Tab PO SCH ×2 (08:28→17:43)
[2020-07-27] MEDS: metFORMIN 500 MG Tab PO SCH ×3 (08:28→17:42)
--- NOTE | 2020-07-27 09:33 | PCM.SN.2 ---
- Free Text/Narrative Note: Blood work reviewed today. WBC still elevated, however improving slowly. Vital signs are stable with exception of mildly elevated blood pressures, however he is afebrile. UA with culture and sensitivity have been ordered secondary to his persistent leukocytosis. Persistent LFTs elevation likely secondary to his CHF, although his BNP is improving slowly with increased Lasix therapy. Mild hyperkalemia with previous potassium supplement to be discontinued with patient to receive an extra oral dose of Lasix at noon on 07/27. Blood work to be repeated on 07/29. INR is subtherapeutic at 1.8 with Coumadin to be increased to 2.5 mg p.o. every afternoon starting on 07/27. Mild persistent hypoalbuminemia, however improved. Sliding scale shows Accu-Cheks to be under relatively good control.
[2020-07-27] MEDS ORDERED: Furosemide 40 MG Tab PO ONE (12:00)
[2020-07-27] MEDS: Warfarin 2.5 MG Tab PO SCH (17:45)
[2020-07-27] MEDS: atorvaSTATin 40 MG Tab PO SCH (19:31)
[2020-07-27] MEDS: Aluminum Hydroxide/Magnesium Hydroxide/Simethicone Susp 30 ML Cup PO PRN (22:25)
[2020-07-28] MEDS: Magnesium Oxide 400 MG Tab PO SCH ×2 (07:43→17:14)
[2020-07-28] MEDS: Insulin Lispro 100 Units/ML 3 ML Vial SUBCUT SCH ×3 (07:43→17:04)
[2020-07-28] MEDS: Aspirin 81 MG Tab.EC PO SCH (07:44)
[2020-07-28] MEDS: glipiZIDE 5 MG Tab PO SCH ×2 (07:44→17:14)
[2020-07-28] MEDS: Clopidogrel 75 MG Tab PO SCH (07:44)
[2020-07-28] MEDS: Furosemide 20 MG Tab PO SCH (07:44)
[2020-07-28] MEDS: Digoxin 125 MCG Tab PO SCH (07:45)
[2020-07-28] MEDS: metFORMIN 500 MG Tab PO SCH ×3 (07:45→17:14)
[2020-07-28] MEDS: Finasteride 5 MG Tab PO SCH (07:46)
[2020-07-28] MEDS: Lisinopril 20 MG Tab PO SCH (07:46)
[2020-07-28] MEDS: Tamsulosin 0.4 MG Cap.ER PO SCH (07:46)
[2020-07-28] MEDS: Acetaminophen/oxyCODONE 325-5 MG Tab PO PRN ×2 (07:47→21:18)
[2020-07-28] MEDS: Carvedilol 25 MG Tab PO SCH ×2 (07:47→17:11)
[2020-07-28] MEDS: Famotidine 20 MG Tab PO SCH (07:47)
[2020-07-28] MEDS: CINNAMON 1000 MG PO SCH ×2 (07:49→17:17)
[2020-07-28] MEDS: Ketoconazole 2% Crm 30 GM Tube TOP SCH ×2 (07:49→17:17)
[2020-07-28] MEDS: Mineral Oil/Petrolatum/Phenylephrine/Shark Liver Oil Oint 57 GM Tube RECTAL PRN (07:50)
[2020-07-28] MEDS: [UNRECOGNIZED DRUG - OTHER] PO SCH ×2 (07:52→17:16)
--- NOTE | 2020-07-28 11:47 | PCM.PN ---
- General Info Date of Service: 07/28/20 Admission Dx/Problem (Free Text): Admission Diagnosis/Problem Admission Diagnosis/Problem Weakness Subjective Update: Patient complained of 3/10 retrosternal chest pressure rating into the mid back region and left arm at about 6:30 AM this morning to the nurse with Percocet given at that time. Slow improvement during the course of the morning. No other chest pain or anginal type symptoms. Symptoms significantly improved and/are resolved by time of my exam. Functional Status: Reports: Pain Controlled, Tolerating Diet, Ambulating, Urinating, New Symptoms (Chest pain as below), Incentive Spirometry Pain Score: 3 (As above) - Review of Systems General: Reports: Weakness (Improving slowly), Appetite (Good). Denies: Fever, Fatigue, Malaise, Chills, Night Sweats HEENT: Reports: Glasses. Denies: Dysphasia, Ear Pain, Headaches, Post Nasal Drip, Sinus Congestion, Rhinitis, Visual Changes Pulmonary: Reports: Cough. Denies: Shortness of Breath, Pleuritic Chest Pain, Sputum, Hemoptysis, Wheezing Cardiovascular: Reports: Chest Pain. Denies: Palpitations, Dyspnea on Exertion, Orthopnea, PND, Edema, Lightheadedness Gastrointestinal: Reports: Other (Normal bowel movement yesterday by patient history). Denies: Abdominal Pain, Constipation, Decreased Appetite, Diarrhea, Difficulty Swallowing, Flatus, Hematochezia, Melena, Nausea, Vomiting Genitourinary: Reports: No Symptoms. Denies: Dysuria, Frequency, Burning, Pain, Urgency, Incontinence, Hematuria, Retention Musculoskeletal: Reports: Arm Pain (Radiated chest pain?). Denies: Neck Pain, Back Pain, Leg Pain Skin: Reports: Other (Sternal incision healing well). Denies: Diaphoresis Neurological: Reports: Difficulty Walking (Secondary to weakness), Weakness (As above). Denies: Confusion, Dizziness Psychiatric: Reports: No Symptoms. Denies: Confusion, Anxiety, Agitation, Cravings, Hallucinations - Patient Data Vitals - Most Recent: Last Vital Signs Temp 35.2 C L 07/28/20 07:55 Pulse 72 07/28/20 07:55 Resp 17 07/28/20 07:55 BP 152/52 H 07/28/20 07:55 Pulse Ox 97 07/28/20 07:55 Vital Signs - 24 hr 07/27/20 07/27/20 07/28/20 16:14 17:43 07:45 Temperature [ 35.9 C L Temporal] Pulse, 61 72 Peripheral Pulse, 61 Peripheral [ Right Pulse Oximetry] Respiratory 16 Rate Blood Pressure 161/57 H Blood Pressure 161/57 H [Left Upper Arm ] Blood Pressure [Right Upper Arm] O2 Sat by Pulse 97 Oximetry 07/28/20 07/28/20 07/28/20 07:46 07:47 07:55 Temperature [ 35.2 C L Temporal] Pulse, 72 Peripheral Pulse, 72 Peripheral [ Right Pulse Oximetry] Respiratory 17 Rate Blood Pressure 152/52 H 152/52 H Blood Pressure [Left Upper Arm ] Blood Pressure 152/52 H [Right Upper Arm] O2 Sat by Pulse 97 Oximetry Weight - Most Recent: 75.432 kg I&O - Last 24 Hours: Intake & Output 07/27/20 07/28/20 07/28/20 22:59 06:59 14:59 Intake Total 325 125 9569 Output Total 1350 700 450 Balance -450 -500 710 Imaging Impressions - Last 24 Hours: Chest x-ray, PA and lateral, shows status post medial sternotomy with mild cardiomegaly and only minimal centralized CHF with no significant pulmonary infiltrates, pneumothorax, etc.. Moderate osteoarthritic and osteoporotic changes were present with mild pulmonary obstructive disease. Lab Results Last 24 Hours: Laboratory Results - last 24 hr 07/27/20 07/27/20 07/27/20 Range/Units 12:06 13:42 17:04 INR POC Glucose 92 66 (65-110) mg/dl Troponin I (0.000-0.056) ng/mL NT-Pro-B Natriuret Pep (0-125) pg/mL Specimen Type Urincc Urine Color Yellow Urine Appearance Clear Urine pH 5.0 (5.0-9.0) Ur Specific [place] 1.015 (1.005-1.030) Urine Protein Negative (NEGATIVE) mg/dL Urine Glucose (UA) Negative (NEGATIVE) mg/dL Urine Ketones Negative (NEGATIVE) mg/dL Urine Occult Blood Trace-lysed H (NEGATIVE) Urine Nitrite Negative (NEGATIVE) Urine Bilirubin Negative (NEGATIVE) Urine Urobilinogen 0.2 (0.2-1.0) E.U./dL Ur Leukocyte Esterase Negative (NEGATIVE) Urine RBC 0-5 /HPF Urine WBC 0-5 /HPF Ur Epithelial Cells Rare /LPF Urine Bacteria Rare (NONE TO FEW) /HPF 07/28/20 07/28/20 07/28/20 Range/Units 07:07 07:23 09:40 INR 2.0 POC Glucose 104 (65-110) mg/dl Troponin I (0.000-0.056) ng/mL NT-Pro-B Natriuret Pep 2953 H (0-125) pg/mL Specimen Type Urine Color Urine Appearance Urine pH (5.0-9.0) Ur Specific [place] (1.005-1.030) Urine Protein (NEGATIVE) mg/dL Urine Glucose (UA) (NEGATIVE) mg/dL Urine Ketones (NEGATIVE) mg/dL Urine Occult Blood (NEGATIVE) Urine Nitrite (NEGATIVE) Urine Bilirubin (NEGATIVE) Urine Urobilinogen (0.2-1.0) E.U./dL Ur Leukocyte Esterase (NEGATIVE) Urine RBC /HPF Urine WBC /HPF Ur Epithelial Cells /LPF Urine Bacteria (NONE TO FEW) /HPF 07/28/20 07/28/20 Range/Units 09:40 11:35 INR POC Glucose 148 H (65-110) mg/dl Troponin I 0.018 (0.000-0.056) ng/mL NT-Pro-B Natriuret Pep (0-125) pg/mL Specimen Type Urine Color Urine Appearance Urine pH (5.0-9.0) Ur Specific [place] (1.005-1.030) Urine Protein (NEGATIVE) mg/dL Urine Glucose (UA) (NEGATIVE) mg/dL Urine Ketones (NEGATIVE) mg/dL Urine Occult Blood (NEGATIVE) Urine Nitrite (NEGATIVE) Urine Bilirubin (NEGATIVE) Urine Urobilinogen (0.2-1.0) E.U./dL Ur Leukocyte Esterase (NEGATIVE) Urine RBC /HPF Urine WBC /HPF Ur Epithelial Cells /LPF Urine Bacteria (NONE TO FEW) /HPF Everardo Results Last 24 Hours: Microbiology 07/27/20 13:42 Urine Culture - Preliminary Urine, Clean Catch NO GROWTH AFTER 1 DAY Med Orders - Current: Current Medications Acetaminophen (Acetaminophen 500 Mg Tab) 1,000 mg PO BID PRN PRN Reason: Pain Last Admin: 07/27/20 07:52 Dose: 1,000 mg Documented by: Al Hydroxide/Mg Hydroxide (Aluminum Hydroxide/Magnesium Hydroxide/Simethicone Susp 30 Ml Cup) 30 ml PO QID PRN PRN Reason: Heartburn Last Admin: 07/27/20 22:25 Dose: 30 ml Documented by: Aspirin (Aspirin 81 Mg Tab.Ec) 81 mg PO DAILY [facility] Last Admin: 07/28/20 07:44 Dose: 81 mg Documented by: Atorvastatin Calcium (Atorvastatin 40 Mg Tab) 40 mg PO BEDTIME [facility] Last Admin: 07/27/20 19:31 Dose: 40 mg Documented by: Carvedilol (Carvedilol 25 Mg Tab) 25 mg PO BID [facility] Last Admin: 07/28/20 07:47 Dose: 25 mg Documented by: Clopidogrel Bisulfate (Clopidogrel 75 Mg Tab) 75 mg PO DAILY [facility] Last Admin: 07/28/20 07:44 Dose: 75 mg Documented by: Dextrose/Water (50% Dextrose In Water 50 Ml Syringe) 50 ml IV ASDIRECTED PRN PRN Reason: Hypoglycemia Digoxin (Digoxin 125 Mcg Tab) 125 mcg PO DAILY [facility] Last Admin: 07/28/20 07:45 Dose: 125 mcg Documented by: Docusate Sodium (Docusate Sodium 100 Mg Cap) 100 mg PO BID PRN PRN Reason: Constipation Famotidine (Famotidine 20 Mg Tab) 20 mg PO DAILY [facility] Last Admin: 07/28/20 07:47 Dose: 20 mg Documented by: Finasteride (Finasteride 5 Mg Tab) 5 mg PO DAILY [facility] Last Admin: 07/28/20 07:46 Dose: 5 mg Documented by: Furosemide (Furosemide 20 Mg Tab) 40 mg PO DAILY [facility] Last Admin: 07/28/20 07:44 Dose: 40 mg Documented by: Glipizide (Glipizide 5 Mg Tab) 10 mg PO BID [facility] Last Admin: 07/28/20 07:44 Dose: 10 mg Documented by: Glucagon (Glucagon,Human Recombinant 1 Mg Vial) 1 mg IM ASDIRECTED PRN PRN Reason: Hypoglycemia Insulin Human Lispro (Insulin Lispro 100 Units/Ml 3 Ml Vial) 0 unit SUBCUT TIDAC [facility]; Protocol Last Admin: 07/28/20 07:43 Dose: Not Given Documented by: Ketoconazole (Ketoconazole 2% Crm 30 Gm Tube) 0 gm TOP BID [facility] Last Admin: 07/28/20 07:49 Dose: 1 applic Documented by: Ketoconazole (Ketoconazole 2% Crm 30 Gm Tube) 1 gm TOP ASDIRECTED PRN PRN Reason: Urethritis Last Admin: 07/26/20 06:16 Dose: 1 applic Documented by: Lisinopril (Lisinopril 20 Mg Tab) 20 mg PO DAILY [facility] Last Admin: 07/28/20 07:46 Dose: 20 mg Documented by: Magnesium Oxide (Magnesium Oxide 400 Mg Tab) 400 mg PO BID [facility] Last Admin: 07/28/20 07:43 Dose: 400 mg Documented by: Metformin HCl (Metformin 500 Mg Tab) 750 mg PO TIDMEALS [facility] Last Admin: 07/28/20 07:45 Dose: 750 mg Documented by: Nitroglycerin (Nitroglycerin 0.4 Mg Tab.Sl) 0.4 mg SL Q5M PRN PRN Reason: Angina Hylands Leg Cramps (Tabets) 1 each PO BID [facility] Last Admin: 07/28/20 07:52 Dose: 1 each Documented by: Cinnamon 1000mg (Capsules) 1 each PO BID [facility] Last Admin: 07/28/20 07:49 Dose: Not Given Documented by: Oxycodone/Acetaminophen (Acetaminophen/Oxycodone 325-5 Mg Tab) 1 tab PO Q6H PRN PRN Reason: Pain Last Admin: 07/28/20 07:47 Dose: 1 tab Documented by: Phenyleph/Shark Oil/Min Oil/Petrol (Mineral Oil/Petrolatum/Phenylephrine/Shark Liver Oil Oint 57 Gm Tube) 0 gm RECTAL ASDIRECTED PRN PRN Reason: Hemorrhoids Last Admin: 07/28/20 07:50 Dose: 1 applic Documented by: Tamsulosin HCl (Tamsulosin 0.4 Mg Cap.Er) 0.4 mg PO DAILY [facility] Last Admin: 07/28/20 07:46 Dose: 0.4 mg Documented by: Temazepam (Temazepam 15 Mg Cap) 15 mg PO BEDTIME PRN PRN Reason: Sleep Warfarin Sodium (Warfarin 2.5 Mg Tab) 2.5 mg PO DAILY@1800 [facility] Last Admin: 07/27/20 17:45 Dose: 2.5 mg Documented by: Discontinued Medications Furosemide (Furosemide 20 Mg Tab) 20 mg PO DAILY [facility] Last Admin: 07/24/20 08:27 Dose: 20 mg Documented by: Furosemide (Furosemide 40 Mg Tab) 40 mg PO ONETIME ONE Stop: 07/27/20 12:01 Last Admin: 07/27/20 12:08 Dose: 40 mg Documented by: Non-Formulary Medication (Cinnamon Bark [Cinnamon]) 500 mg PO BID [facility] Last Admin: 07/24/20 08:06 Dose: Not Given Documented by: Non-Formulary Medication (Omeprazole [Omeprazole]) 40 mg PO DAILY [facility] Potassium Chloride (Potassium Chloride 20 Meq Tab.Er) 20 meq PO DAILY [facility] Last Admin: 07/27/20 07:39 Dose: 20 meq Documented by: Warfarin Sodium (Warfarin 2.5 Mg Tab) 2.5 mg PO ONETIME ONE Stop: 07/23/20 17:01 Last Admin: 07/23/20 18:11 Dose: 2.5 mg Documented by: Warfarin Sodium (Warfarin 2 Mg Tab) 2 mg PO ONETIME ONE Stop: 07/24/20 18:01 Last Admin: 07/24/20 17:40 Dose: 2 mg Documented by: Warfarin Sodium (Warfarin 2 Mg Tab) 2 mg PO ONETIME ONE Stop: 07/25/20 18:01 Last Admin: 07/25/20 17:04 Dose: 2 mg Documented by: Warfarin Sodium (Warfarin 2 Mg Tab) 2 mg PO ONETIME ONE Stop: 07/26/20 18:01 Last Admin: 07/26/20 17:04 Dose: 2 mg Documented by: - Exam Quality Assessment: DVT Prophylaxis (Coumadin). No: Supplemental Oxygen, Central Line/PICC, Urine Catheter, Skin Breakdown, Restraints General: Alert, Oriented, Cooperative, No Acute Distress HEENT: Pupils Equal, Pupils Reactive, EOMI, Mucous Membr. Moist/[place], Other (Patient is wearing glasses). No: Scleral Icterus Neck: Supple, Trachea Midline, No JVD, No Thyromegaly, Carotid Bruit (Mild bilateral carotid bruits) Lungs: Normal Respiratory Effort, Rales (Mild bilateral basilar), Other (Sternal incision is intact, clean, and dry). No: Rhonchi, Rub, Stridor, Wheezing Cardiovascular: Regular Rate, Regular Rhythm, No Murmurs. No: Gallops, Rubs GI/Abdominal Exam: Normal Bowel Sounds, Soft, Non-Tender, No Organomegaly, No Distention, No Abnormal Bruit, No Mass, Pelvis Stable (Male) Exam: Deferred Back Exam: Normal Inspection, Full Range of Motion. No: CVA Tenderness (L), CVA Tenderness (R), Muscle Spasm Extremities: Normal Inspection, Normal Range of Motion, Non-Tender, No Pedal Edema, Normal Capillary Refill. No: Kenji's Sign Peripheral Pulses: 2+: Radial (L), Radial (R), Dorsalis Pedis (L), Dorsalis Pedis (R) Skin: Warm, Dry, Intact Wound/Incisions: Healing Well Neurological: No New Focal Deficit Psy/Mental Status: Alert, Normal Affect, Normal Mood. No: Depressed, Agitated, Hallucinations, Withdrawal Symptoms #1 Interpretation EKG Date: 07/28/20 Time: 09:14 Rhythm: NSR Rate (Beats/Min): 70 Williams: Normal (Neutral) P-Wave: Present (Mild diffuse biphasic P waves) QRS: Normal (0.08 seconds) ST-T: Other (Stable T wave inversions in leads I, II, III, aVF, and V4 through V6 with resolved previous PVC) QT: Normal IA/PQ Interval: 0.21 seconds representing a relatively stable first-degree AV block with extreme poor R wave progression in the anterior leads. Comparison: Change From Previous EKG (As above since 07/24/2020) EKG Interpretation Comments: 1. Stable inferolateral cardiac ischemia 2. History of PVC 3. Stable first-degree AV block - Patient Data Lab Results Last 24 hrs: Laboratory Results - last 24 hr 07/27/20 07/27/20 07/27/20 Range/Units 12:06 13:42 17:04 INR POC Glucose 92 66 (65-110) mg/dl Troponin I (0.000-0.056) ng/mL NT-Pro-B Natriuret Pep (0-125) pg/mL Specimen Type Urincc Urine Color Yellow Urine Appearance Clear Urine pH 5.0 (5.0-9.0) Ur Specific [place] 1.015 (1.005-1.030) Urine Protein Negative (NEGATIVE) mg/dL Urine Glucose (UA) Negative (NEGATIVE) mg/dL Urine Ketones Negative (NEGATIVE) mg/dL Urine Occult Blood Trace-lysed H (NEGATIVE) Urine Nitrite Negative (NEGATIVE) Urine Bilirubin Negative (NEGATIVE) Urine Urobilinogen 0.2 (0.2-1.0) E.U./dL Ur Leukocyte Esterase Negative (NEGATIVE) Urine RBC 0-5 /HPF Urine WBC 0-5 /HPF Ur Epithelial Cells Rare /LPF Urine Bacteria Rare (NONE TO FEW) /HPF 07/28/20 07/28/20 07/28/20 Range/Units 07:07 07:23 09:40 INR 2.0 POC Glucose 104 (65-110) mg/dl Troponin I (0.000-0.056) ng/mL NT-Pro-B Natriuret Pep 2953 H (0-125) pg/mL Specimen Type Urine Color Urine Appearance Urine pH (5.0-9.0) Ur Specific [place] (1.005-1.030) Urine Protein (NEGATIVE) mg/dL Urine Glucose (UA) (NEGATIVE) mg/dL Urine Ketones (NEGATIVE) mg/dL Urine Occult Blood (NEGATIVE) Urine Nitrite (NEGATIVE) Urine Bilirubin (NEGATIVE) Urine Urobilinogen (0.2-1.0) E.U./dL Ur Leukocyte Esterase (NEGATIVE) Urine RBC /HPF Urine WBC /HPF Ur Epithelial Cells /LPF Urine Bacteria (NONE TO FEW) /HPF 07/28/20 07/28/20 Range/Units 09:40 11:35 INR POC Glucose 148 H (65-110) mg/dl Troponin I 0.018 (0.000-0.056) ng/mL NT-Pro-B Natriuret Pep (0-125) pg/mL Specimen Type Urine Color Urine Appearance Urine pH (5.0-9.0) Ur Specific [place] (1.005-1.030) Urine Protein (NEGATIVE) mg/dL Urine Glucose (UA) (NEGATIVE) mg/dL Urine Ketones (NEGATIVE) mg/dL Urine Occult Blood (NEGATIVE) Urine Nitrite (NEGATIVE) Urine Bilirubin (NEGATIVE) Urine Urobilinogen (0.2-1.0) E.U./dL Ur Leukocyte Esterase (NEGATIVE) Urine RBC /HPF Urine WBC /HPF Ur Epithelial Cells /LPF Urine Bacteria (NONE TO FEW) /HPF Result Diagrams: 07/27/20 07:38 07/27/20 07:38 Everardo Results Last 24 hrs: Microbiology 07/27/20 13:42 Urine Culture - Preliminary Urine, Clean Catch NO GROWTH AFTER 1 DAY Sepsis Event Note - Evaluation Sepsis Screening Result: No Definite Risk - Focused Exam Vital Signs: Vital Signs Temp Pulse Pulse Resp BP BP Pulse Ox 07/28/20 07:55 35.2 C L 72 17 152/52 H 97 07/28/20 07:47 72 152/52 H 07/28/20 07:46 152/52 H 07/28/20 07:45 72 - Problem List & Annotations (1) Weakness SNOMED Code(s): 78229722 Code(s): R53.1 - WEAKNESS Status: Acute Priority: High Current Visit: Yes Onset Date: ~07/14/20 Annotation/Comment:: Generalized weakness secondary to recent four-vessel CABG with patient transfer to our facility from for further strengthening, PT, and OT. Advance activity slowly per their direction. (2) Coronary artery disease SNOMED Code(s): 90559823 Code(s): I25.10 - ATHSCL HEART DISEASE OF [place] CORONARY ARTERY W/O ANG PCTRS Status: Chronic Priority: High Current Visit: Yes Qualifiers: Coronary Disease-Associated Artery/Lesion type: bypass graft [place] vs. transplanted heart: [place] heart Associated angina: without angina Qualified Code(s): I25.810 - Atherosclerosis of coronary artery bypass graft(s) without angina pectoris Annotation/Comment:: Nonspecific chest pain or anginal type symptoms on 07/28 with evidence of some mild CHF by clinical exam with elevated BNP and mild secondary change in his troponin I, which is still normal. Stable inferolateral cardiac ischemia by EKG. Previous PTCA/stent x2 with recent four-vessel CABG on 07/14/2020 as above. We did confirm with the providers at that they do wish to continue Coumadin, Plavix, and aspirin. Daily INRs per their instructions with further Coumadin adjustment depending on his clinical course. INR is therapeutic on 07/28. Initiate IV Lasix with caution. (3) CHF (congestive heart failure) SNOMED Code(s): 84895978 Code(s): I50.9 - HEART FAILURE, UNSPECIFIED Status: Chronic Priority: Medium Current Visit: Yes Qualifiers: Heart failure type: combined systolic and diastolic Heart failure chronicity: chronic Qualified Code(s): I50.42 - Chronic combined systolic (congestive) and diastolic (congestive) heart failure Annotation/Comment:: Chest x-ray and EKG conducted on 07/28 as above. Note recent echocardiogram on 07/20/2020. No ELISABETH inhibitor's or angiotensin II receptor huong secondary to his renal artery stenosis as above. Patient is on digoxin with therapeutic level on 07/24/2020 showing adequate therapy. Continue to observe closely secondary to concomitant digoxin and previous history of distant grade 2 diastolic dysfunction with relative contraindication of digoxin with this condition. (4) Arrhythmia SNOMED Code(s): 499325838 Code(s): I49.9 - CARDIAC ARRHYTHMIA, UNSPECIFIED Status: Chronic Priority: Medium Current Visit: Yes Qualifiers: Arrhythmia type: other cardiac arrhythmia Qualified Code(s): I49.8 - Other specified cardiac arrhythmias Annotation/Comment:: Unknown type of previous cardiac arrhythmia, however apparent history of postoperative atrial fibrillation with no previous history of atrial fibrillation based on history from his family. Continue current Coumadin therapy for now as per recommendations from cardiology, however note possibility of changing to Eliquis in the future secondary to his [facility] coverage. Patient does have a first-degree AV block and occasional PVCs based on our evaluations during his swing bed care. (5) Hypertension SNOMED Code(s): 28795526 Code(s): I10 - ESSENTIAL (PRIMARY) HYPERTENSION Status: Chronic Priority: Medium Current Visit: Yes Qualifiers: Hypertension type: essential hypertension Qualified Code(s): I10 - Essential (primary) hypertension Annotation/Comment:: Occasionally elevated during this hospitalization. Continue to observe closely during his swing bed care. Note history of left renal artery stenosis. (6) Hyperlipidemia SNOMED Code(s): 64672122 Code(s): E78.5 - HYPERLIPIDEMIA, UNSPECIFIED Status: Chronic Priority: Medium Current Visit: Yes Qualifiers: Hyperlipidemia type: unspecified Qualified Code(s): E78.5 - Hyperlipidemia, unspecified Annotation/Comment:: Currently under therapy. Continue to observe closely by regular providers. 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 No previous insulin requirement. Caution with Metformin therapy with history of acute renal failure when this medication was increased to the 1000 mg dose per family history. (8) Osteoarthritis SNOMED Code(s): 581038487 Code(s): M19.90 - UNSPECIFIED OSTEOARTHRITIS, UNSPECIFIED SITE Status: Chronic Priority: Medium Current Visit: Yes Qualifiers: Osteoarthritis location: multiple joints Annotation/Comment:: Stable by history (9) Peptic ulcer disease SNOMED Code(s): 91580739 Code(s): K27.9 - PEPTIC ULC, SITE UNSP, UNSP AC OR CHR, W/O HEMOR OR PERF Status: Chronic Priority: Medium Current Visit: Yes Annotation/Comment:: Stable by history. Secondary to his heart disease his previously prescribed Prilosec will be changed to Pepcid. - Problem List Review Problem List Initiated/Reviewed/Updated: Yes - My Orders Last 24 Hours: My Active Orders 07/27/20 13:42 CULTURE URINE [RM] Routine 07/27/20 18:00 Warfarin [Coumadin] 2.5 mg PO DAILY@1800 07/28/20 08:54 EKG 12 Lead [EK] Stat 07/28/20 08:55 EKG Documentation Completion [RC] ASDIRECTED 07/29/20 05:11 CBC WITH AUTO DIFF [HEME] Routine COMPREHENSIVE METABOLIC PN,CMP [CHEM] Routine INR,PT,PROTHROMBIN TIME [COAG] DAILY INR,PT,PROTHROMBIN TIME [COAG] Routine PRO B-TYPE NATRIUR PEPT,BNPPRO [CHEM] Routine TROPONIN I [CHEM] Routine - Assessment Assessment:: As above - Plan Plan:: As above. Extensive precautions were given to the patient and previously to his 2 daughters, who are in agreement with the treatment plan.
[2020-07-28] MEDS: Potassium Chloride 20 MEQ Tab.ER PO SCH ×2 (12:42→17:14)
[2020-07-28] MEDS: Furosemide 40 MG/4 ML VIAL IVPUSH SCH ×2 (12:43→19:35)
[2020-07-28] MEDS: Warfarin 2.5 MG Tab PO SCH (17:16)
[2020-07-28] MEDS: Sodium Chloride 0.9% 10 ML Syringe FLUSH PRN (19:35)
[2020-07-28] MEDS: atorvaSTATin 40 MG Tab PO SCH (19:35)
[2020-07-29] MEDS: Sodium Chloride 0.9% 10 ML Syringe FLUSH PRN ×3 (04:43→19:49)
[2020-07-29] MEDS: Furosemide 40 MG/4 ML VIAL IVPUSH SCH ×3 (04:43→19:48)
[2020-07-29] MEDS: Aspirin 81 MG Tab.EC PO SCH (07:52)
[2020-07-29] MEDS: Finasteride 5 MG Tab PO SCH (07:52)
[2020-07-29] MEDS: Insulin Lispro 100 Units/ML 3 ML Vial SUBCUT SCH ×3 (07:52→17:56)
[2020-07-29] MEDS: Clopidogrel 75 MG Tab PO SCH (07:52)
[2020-07-29] MEDS: Magnesium Oxide 400 MG Tab PO SCH ×2 (07:52→18:01)
[2020-07-29] MEDS: glipiZIDE 5 MG Tab PO SCH ×2 (07:53→18:01)
[2020-07-29] MEDS: Digoxin 125 MCG Tab PO SCH (07:53)
[2020-07-29] MEDS: Tamsulosin 0.4 MG Cap.ER PO SCH (07:54)
[2020-07-29] MEDS: Potassium Chloride 20 MEQ Tab.ER PO SCH ×3 (07:54→18:01)
[2020-07-29] MEDS: Famotidine 20 MG Tab PO SCH (07:54)
[2020-07-29] MEDS: Carvedilol 25 MG Tab PO SCH ×2 (07:54→18:02)
[2020-07-29] MEDS: Lisinopril 20 MG Tab PO SCH (07:55)
[2020-07-29] MEDS: [UNRECOGNIZED DRUG - OTHER] PO SCH ×2 (07:56→17:56)
[2020-07-29] MEDS: CINNAMON 1000 MG PO SCH ×2 (07:56→18:16)
[2020-07-29] MEDS: metFORMIN 500 MG Tab PO SCH ×3 (07:57→18:03)
[2020-07-29] MEDS: Mineral Oil/Petrolatum/Phenylephrine/Shark Liver Oil Oint 57 GM Tube RECTAL PRN ×2 (07:58→18:29)
[2020-07-29] MEDS: Ketoconazole 2% Crm 30 GM Tube TOP SCH ×2 (07:58→18:28)
[2020-07-29 08:15] LABS: CHLORIDE,CL 99 mmol/L (98-107); SODIUM,NA 137 mmol/L (136-145)
[2020-07-29] MEDS: Acetaminophen/oxyCODONE 325-5 MG Tab PO PRN ×2 (11:43→22:11)
--- NOTE | 2020-07-29 14:27 | PCM.SN.2 ---
- Free Text/Narrative Note: Laboratory Results - last 24 hr 07/28/20 07/29/20 07/29/20 Range/Units 16:50 07:24 07:28 WBC (4.0-10.2) K/uL RBC (4.33-5.41) M/uL Hgb (13.1-16.8) g/dL Hct (39.0-49.0) % MCV (84.0-98.0) fL MCH (28.2-33.3) pg MCHC (31.7-36.0) g/dL RDW (11.2-14.1) % Plt Count (150-350) K/uL Neut % (Auto) (45.0-80.0) % Lymph % (Auto) (10.0-50.0) % [place] % (Auto) (2.0-14.0) % Eos % (Auto) (0.0-5.0) % Baso % (Auto) (0.0-2.0) % Neut # (Auto) (1.40-7.00) K/uL Lymph # (Auto) (0.50-3.50) K/uL [place] # (Auto) (0.00-1.00) K/uL Eos # (Auto) (0.00-0.50) K/uL Baso # (Auto) (0.00-0.20) K/uL PT 15.4 H (9.5-12.0) SEC INR 1.6 Sodium (136-145) mmol/L Potassium (3.5-5.1) mmol/L Chloride (98-107) mmol/L Carbon Dioxide (21.0-32.0) mmol/L BUN (7-18) mg/dL Creatinine (0.51-1.17) mg/dL Est Cr Clr Drug Dosing mL/min Estimated GFR (MDRD) mL/min Glucose (70-99) mg/dL POC Glucose 110 128 H (65-110) mg/dl Calcium (8.5-10.1) mg/dL Magnesium (1.8-2.4) mg/dL Total Bilirubin (0.2-1.0) mg/dL AST (15-37) U/L ALT (12-78) U/L Alkaline Phosphatase (46-116) IU/L Troponin I (0.000-0.056) ng/mL NT-Pro-B Natriuret Pep (0-125) pg/mL Total Protein (6.4-8.2) g/dL Albumin (3.4-5.0) g/dL 07/29/20 07/29/20 07/29/20 Range/Units 07:28 07:28 11:17 WBC 13.4 H (4.0-10.2) K/uL RBC 3.77 L (4.33-5.41) M/uL Hgb 11.1 L (13.1-16.8) g/dL Hct 34.9 L (39.0-49.0) % MCV 92.6 (84.0-98.0) fL MCH 29.4 (28.2-33.3) pg MCHC 31.8 (31.7-36.0) g/dL RDW 12.9 (11.2-14.1) % Plt Count 366 H (150-350) K/uL Neut % (Auto) 76.8 (45.0-80.0) % Lymph % (Auto) 14.1 (10.0-50.0) % [place] % (Auto) 8.0 (2.0-14.0) % Eos % (Auto) 1.0 (0.0-5.0) % Baso % (Auto) 0.1 (0.0-2.0) % Neut # (Auto) 10.29 H (1.40-7.00) K/uL Lymph # (Auto) 1.90 (0.50-3.50) K/uL [place] # (Auto) 1.08 H (0.00-1.00) K/uL Eos # (Auto) 0.14 (0.00-0.50) K/uL Baso # (Auto) 0.02 (0.00-0.20) K/uL PT (9.5-12.0) SEC INR Sodium 137 (136-145) mmol/L Potassium 4.7 (3.5-5.1) mmol/L Chloride 99 (98-107) mmol/L Carbon Dioxide 28.6 (21.0-32.0) mmol/L BUN 24 H (7-18) mg/dL Creatinine 1.00 (0.51-1.17) mg/dL Est Cr Clr Drug Dosing 52.16 mL/min Estimated GFR (MDRD) > 60 mL/min Glucose 136 H (70-99) mg/dL POC Glucose 198 H (65-110) mg/dl Calcium 9.5 (8.5-10.1) mg/dL Magnesium 2.0 (1.8-2.4) mg/dL Total Bilirubin 0.3 (0.2-1.0) mg/dL AST 26 (15-37) U/L ALT 77 (12-78) U/L Alkaline Phosphatase 99 (46-116) IU/L Troponin I 0.021 (0.000-0.056) ng/mL NT-Pro-B Natriuret Pep 2537 H (0-125) pg/mL Total Protein 7.4 (6.4-8.2) g/dL Albumin 3.1 L (3.4-5.0) g/dL Labs reviewed as above. Note subtherapeutic INR. Coumadin to be increased with INR to be checked on 07/31. Otherwise repeat blood work in 1 week.
[2020-07-29] MEDS: Acetaminophen 500 MG Tab PO PRN (18:31)
[2020-07-29] MEDS: atorvaSTATin 40 MG Tab PO SCH (19:48)
[2020-07-30] MEDS: Acetaminophen 500 MG Tab PO PRN (04:44)
[2020-07-30] MEDS: Sodium Chloride 0.9% 10 ML Syringe FLUSH PRN ×3 (04:45→19:49)
[2020-07-30] MEDS: Furosemide 40 MG/4 ML VIAL IVPUSH SCH ×3 (04:45→19:36)
[2020-07-30] MEDS: [UNRECOGNIZED DRUG - OTHER] PO SCH ×2 (07:58→17:17)
[2020-07-30] MEDS: glipiZIDE 5 MG Tab PO SCH ×2 (07:59→17:12)
[2020-07-30] MEDS: CINNAMON 1000 MG PO SCH ×2 (07:59→17:18)
[2020-07-30] MEDS: Clopidogrel 75 MG Tab PO SCH (07:59)
[2020-07-30] MEDS: Lisinopril 20 MG Tab PO SCH (07:59)
[2020-07-30] MEDS: Carvedilol 25 MG Tab PO SCH ×2 (08:00→17:17)
[2020-07-30] MEDS: Potassium Chloride 20 MEQ Tab.ER PO SCH ×3 (08:00→17:14)
[2020-07-30] MEDS: Magnesium Oxide 400 MG Tab PO SCH ×2 (08:01→17:14)
[2020-07-30] MEDS: Aspirin 81 MG Tab.EC PO SCH (08:01)
[2020-07-30] MEDS: Digoxin 125 MCG Tab PO SCH (08:02)
[2020-07-30] MEDS: metFORMIN 500 MG Tab PO SCH ×3 (08:06→17:13)
[2020-07-30] MEDS: Famotidine 20 MG Tab PO SCH (08:07)
[2020-07-30] MEDS: Tamsulosin 0.4 MG Cap.ER PO SCH (08:07)
[2020-07-30] MEDS: Finasteride 5 MG Tab PO SCH (08:07)
[2020-07-30] MEDS: Insulin Lispro 100 Units/ML 3 ML Vial SUBCUT SCH ×3 (08:08→17:09)
[2020-07-30] MEDS: Ketoconazole 2% Crm 30 GM Tube TOP SCH ×2 (08:09→17:18)
[2020-07-30] MEDS: atorvaSTATin 40 MG Tab PO SCH (19:34)
[2020-07-30] MEDS: Mineral Oil/Petrolatum/Phenylephrine/Shark Liver Oil Oint 57 GM Tube RECTAL PRN (19:50)
[2020-07-30] MEDS: Ketoconazole 2% Crm 30 GM Tube TOP PRN (19:51)
[2020-07-30] MEDS: Acetaminophen/oxyCODONE 325-5 MG Tab PO PRN (20:59)
[2020-07-31] MEDS: Sodium Chloride 0.9% 10 ML Syringe FLUSH PRN ×2 (03:44→03:50)
[2020-07-31] MEDS: Furosemide 40 MG/4 ML VIAL IVPUSH SCH ×2 (03:45→11:46)
[2020-07-31] MEDS: metFORMIN 500 MG Tab PO SCH ×2 (07:52→11:45)
[2020-07-31] MEDS: Tamsulosin 0.4 MG Cap.ER PO SCH (07:53)
[2020-07-31] MEDS: Clopidogrel 75 MG Tab PO SCH (07:53)
[2020-07-31] MEDS: Finasteride 5 MG Tab PO SCH (07:53)
[2020-07-31] MEDS: Potassium Chloride 20 MEQ Tab.ER PO SCH ×2 (07:53→11:46)
[2020-07-31] MEDS: Aspirin 81 MG Tab.EC PO SCH (07:54)
[2020-07-31] MEDS: Magnesium Oxide 400 MG Tab PO SCH (07:54)
[2020-07-31] MEDS: glipiZIDE 5 MG Tab PO SCH (07:54)
[2020-07-31] MEDS: Famotidine 20 MG Tab PO SCH (07:54)
[2020-07-31] MEDS: Insulin Lispro 100 Units/ML 3 ML Vial SUBCUT SCH ×2 (07:54→11:45)
[2020-07-31] MEDS: [UNRECOGNIZED DRUG - OTHER] PO SCH (07:55)
[2020-07-31] MEDS: Ketoconazole 2% Crm 30 GM Tube TOP SCH (07:55)
[2020-07-31] MEDS: CINNAMON 1000 MG PO SCH (07:55)
[2020-07-31] MEDS: Digoxin 125 MCG Tab PO SCH (07:58)
[2020-07-31] MEDS: Carvedilol 25 MG Tab PO SCH (07:58)
[2020-07-31] MEDS: Lisinopril 20 MG Tab PO SCH (07:58)
--- NOTE | 2020-07-31 09:38 | PCM.DCSUM1 ---
Discharge Summary - Hospital Course HPI Initial Comments: See admission H&P Brief History: See admission H&P Diagnosis: Stroke: No Modified Andrews Scale: No Symptoms at All Modified Andrews Scale Score: 0 - Discharge Data Discharge Date: 07/31/20 Discharge Disposition: Home, Self-Care 01 Condition: Good - Referral to Home Health Primary Care Physician: PCP Unknown - Discharge Diagnosis/Problem(s) (1) Weakness SNOMED Code(s): 32572796 ICD Code: R53.1 - WEAKNESS Status: Acute Priority: High Current Visit: Yes Onset Date: ~07/14/20 Problem Details: Generalized weakness secondary to recent four-vessel CABG with patient transfer to our facility from [facility] for further strengthening, PT, and OT, which went extremely well during his care in this facility. PT and OT has discharged the patient. He will return to home in [place] and feels that he does not need home health. Continue to advance activity slowly per their direction with strict fall precautions and continued walker use, which is going well. (2) Coronary artery disease SNOMED Code(s): 00086983 ICD Code: I25.10 - ATHSCL HEART DISEASE OF [place] CORONARY ARTERY W/O ANG PCTRS Status: Chronic Priority: High Current Visit: Yes Problem Details: No return of anginal type symptoms with patient's activity and exercise tolerance continues to improve. He is scheduled for cardiac rehabilitation in [place]. Follow-up with Dr. Geronimo, director of financial planning at [facility], as scheduled on 08/[address] Geronimo requesting that further blood work and other evaluations be conducted at [facility] at that time. Suggestions provided as per discharge instructions. INR is therapeutic today. Nonspecific chest pain or anginal type symptoms on 07/28 with evidence of some mild CHF by clinical exam with elevated BNP and mild secondary change in his troponin I, which is still normal. Stable inferolateral cardiac ischemia by EKG. Previous PTCA/stent x2 with recent four-vessel CABG on 07/14/2020 as above. We did confirm with the providers at [facility] that they do wish to continue Coumadin, Plavix, and aspirin. Daily INRs per their instructions with further Coumadin adjustment depending on his clinical course. INR is therapeutic on 07/28. Initiate IV Lasix with caution. Qualifiers: Coronary Disease-Associated Artery/Lesion type: bypass graft [place] vs. transplanted heart: [place] heart Associated angina: without angina Qualified Code(s): I25.810 - Atherosclerosis of coronary artery bypass graft(s) without angina pectoris (3) CHF (congestive heart failure) SNOMED Code(s): 94391356 ICD Code: I50.9 - HEART FAILURE, UNSPECIFIED Status: Chronic Priority: Medium Current Visit: Yes Problem Details: Chest x-ray and EKG conducted on 07/28 as above. Note recent echocardiogram on 07/20/2020. No ELISABETH inhibitor's or angiotensin II receptor huong secondary to his renal artery stenosis as above. Patient is on digoxin with therapeutic level on 07/24/2020 showing adequate therapy. Continue to observe closely secondary to concomitant digoxin and previous history of distant grade 2 diastolic dysfunction with relative contraindication of digoxin with this condition. No significant CHF by today's exam with chest x-ray recommended at follow-up. Qualifiers: Heart failure type: combined systolic and diastolic Heart failure chronicity: chronic Qualified Code(s): I50.42 - Chronic combined systolic (congestive) and diastolic (congestive) heart failure (4) Arrhythmia SNOMED Code(s): 221205630 ICD Code: I49.9 - CARDIAC ARRHYTHMIA, UNSPECIFIED Status: Chronic Priority: Medium Current Visit: Yes Problem Details: Unknown type of previous cardiac arrhythmia, however apparent history of postoperative atrial fibrillation with no previous history of atrial fibrillation based on history from his family. Based on discharge summary from [facility] he was easily converted with IV diltiazem. Continue current Coumadin therapy for now as per recommendations from cardiology, however note possibility of changing to Xarelto in the future secondary to his VA coverage, although he will need prior authorization for this medication. Patient does have a first-degree AV block and occasional PVCs based on our evaluations during his swing bed care. Patient may not need anticoagulation on a long-term basis secondary to brief postoperative atrial fibrillation as above. Family is also requesting change from Coumadin to Xarelto at follow-up with his regular providers secondary to care issues. Qualifiers: Arrhythmia type: other cardiac arrhythmia Qualified Code(s): I49.8 - Other specified cardiac arrhythmias (5) Hypertension SNOMED Code(s): 30523924 ICD Code: I10 - ESSENTIAL (PRIMARY) HYPERTENSION Status: Chronic Priority: Medium Current Visit: Yes Problem Details: Occasionally elevated during this hospitalization. Continue to observe closely during his swing bed care. Note history of left renal artery stenosis with continuation of previous lisinopril therapy with caution. Qualifiers: Hypertension type: essential hypertension Qualified Code(s): I10 - Essential (primary) hypertension (6) Hyperlipidemia SNOMED Code(s): 40237288 ICD Code: E78.5 - HYPERLIPIDEMIA, UNSPECIFIED Status: Chronic Priority: Medium Current Visit: Yes Problem Details: Currently under therapy. Continue to observe closely by regular providers. Qualifiers: Hyperlipidemia type: unspecified Qualified Code(s): E78.5 - Hyperlipidemia, unspecified (7) Diabetes mellitus SNOMED Code(s): 33004047 ICD Code: E11.9 - TYPE 2 DIABETES MELLITUS WITHOUT COMPLICATIONS Status: Chronic Priority: Medium Current Visit: Yes Problem Details: Sliding scale was initiated during recent hospitalization at [facility] with this continued on a 3 times daily rather than 4 times a day basis during his swing bed care. No previous insulin requirement by family's history. Caution with Metformin therapy with history of acute renal failure when this medication was increased to the 1000 mg dose per family history. Secondary to stable blood sugars during his swing bed care patient will not be discharged on an insulin sliding scale for now. Continue to observe closely by his regular providers. Qualifiers: Diabetes mellitus type: type 2 Diabetes mellitus long term acute care registered nurse insulin use: without long term acute care registered nurse use Diabetes mellitus complication status: without compl ication Qualified Code(s): E11.9 - Type 2 diabetes mellitus without complications (8) Osteoarthritis SNOMED Code(s): 326593388 ICD Code: M19.90 - UNSPECIFIED OSTEOARTHRITIS, UNSPECIFIED SITE Status: Chronic Priority: Medium Current Visit: Yes Problem Details: Stable by history and during his swing bed care. Only mild postoperative chest wall pain at this time appropriate for the natural course of his CABG surgery with no local signs of infection despite mild leukocytosis during his swing bed care. Close follow-up by his regular providers. Qualifiers: Osteoarthritis location: multiple joints Osteoarthritis type: primary Qualified Code(s): M89.49 - Other hypertrophic osteoarthropathy, multiple sites (9) Peptic ulcer disease SNOMED Code(s): 07988211 ICD Code: K27.9 - PEPTIC ULC, SITE UNSP, UNSP AC OR CHR, W/O HEMOR OR PERF Status: Chronic Priority: Medium Current Visit: Yes Problem Details: Stable by history. Secondary to his heart disease his previously prescribed Prilosec was changed to Pepcid, which the patient tolerated extremely well. - Patient Summary/Data Operative Procedure(s) Performed: None. Note status post previous CABG. Complications: None Consults: Consultations 07/23/20 14:21 Consult to Case Management/Product Finisher [CONS] Routine OT Evaluation and Treatment [CONS] Routine PT Evaluation and Treatment [CONS] Routine Labs Pending at D/C: None Recommended Follow-up Testing/Procedures: As per discharge instructions and as per discussion of regular providers, director of financial planning, etc. Planned Operative Procedure(s) after DC: Probable low-level cardiac stress test prior to admission to the cardiac rehabilitation program in [place], [place]. - Patient Instructions Diet: Fluid Restriction Diet, Other: Heart healthy, 1800-calorie ADA, diverticulosis Fluid Restriction: 2000 mL Activity: No Strenuous Activities (Maximum 25-50% activity level with strict fall precautions and strict walker use until released by providers) Driving: May Drive Today Showering/Bathing: May Shower Wound/Incision Care: Keep Operative Site/Wound Site Clean and Dry Notify Provider of: Fever, Increased Pain, Swelling and Redness, Drainage, Nausea and/or Vomiting Other/Special Instructions: 1. Follow-up with your director of financial planning, Dr. Geronimo at [facility], on 08/03 as already scheduled with CBC, comprehensive metabolic panel, troponin I, BNP, magnesium level, INR, uric acid level, chest x-ray, and EKG recommended at that time. 2. Discuss possible change to Xarelto with your director of financial planning at the above follow-up visit, although preauthorization from the VA is needed with this medication. Your director of financial planning may decide to discontinue your anticoagulation therapy at follow-up, i.e., discontinuation of Coumadin or Xarelto. 3. Daily weights and notify your regular providers if you gain more than 5 pounds for further instructions. 4. Immediately after this visit verify that your cellular telephone's voicemail has been activated and is empty. Also verify that your home telephone's answering machine is operating properly and has space to receive messages. Note that it is sometimes necessary for us to be able to contact you at a later date to discuss your medical care. 5. Please remember that we are ALWAYS here for you and want to answer any questions you may have. Feel free to call the hospital any time and we call you back ZAIRE. 6. Secondary to your Coumadin therapy do not change your OTC supplements without prior approval from your regular providers w ith Tylenol, ibuprofen, Aleve, etc. to be used with extreme discretion and your regular providers notified, if you have to use these medications on a regular basis. - Discharge Plan *PRESCRIPTION DRUG MONITORING PROGRAM REVIEWED*: Not Applicable *COPY OF PRESCRIPTION DRUG MONITORING REPORT IN PATIENT ASHLEY: Not Applicable Prescriptions/Med Rec: carvediloL [Coreg] 25 mg PO BID #20 Warfarin [Coumadin] 3 mg PO DAILY@1800 #15 tablet Furosemide 20 mg PO BID #20 Digoxin [Lanoxin] 125 mcg PO DAILY #14 atorvaSTATin [Lipitor] 40 mg PO BEDTIME #10 Magnesium Oxide 400 mg PO DAILY #10 tab Nitroglycerin 0.4 mg SL Q5M PRN #25 MDD 3 PRN Reason: Angina oxyCODONE HCl/Acetaminophen [Oxycodone-Acetaminophen 5-325] 1 each PO Q6H PRN #15 PRN Reason: Pain (Severe 7-10) Famotidine [Pepcid] 20 mg PO DAILY #30 tablet Clopidogrel [Plavix] 75 mg PO DAILY #14 Potassium Chloride 20 meq PO DAILY #10 tablet.er Finasteride [Proscar] 5 mg PO DAILY #14 Home Medications: Home Meds Acetaminophen [Tylenol Extra Strength] 1,000 mg PO BID PRN 07/23/20 [History] Aspirin [Halfprin] 81 mg PO DAILY 07/23/20 [History] Docusate Sodium [Colace] 100 mg PO BID PRN 07/23/20 [History] Ketoconazole [Nizoral 2% Crm] 1 applic TOP BID 07/23/20 [History] MO/Pet,Wh/Phenylephrine/Shk Lv [Preparation H Oint] 1 applic RC ASDIRECTED PRN 07/23/20 [History] Non-Formulary Medication [NF Drug] 1 each PO BID 07/23/20 [History] Tamsulosin HCl [Flomax] 0.4 mg PO DAILY 07/23/20 [History] glipiZIDE [Glucotrol] 10 mg PO BID 07/23/20 [History] lisinopriL [Lisinopril] 20 mg PO DAILY 07/23/20 [History] metFORMIN [Glucophage] 750 mg PO TIDMEALS 07/23/20 [History] Non-Formulary Medication [NF Drug] 1 tab PO BID 07/24/20 [History] Clopidogrel [Plavix] 75 mg PO DAILY #14 07/31/20 [Rx] Digoxin [Lanoxin] 125 mcg PO DAILY #14 07/31/20 [Rx] Famotidine [Pepcid] 20 mg PO DAILY #30 tablet 07/31/20 [Rx] Finasteride [Proscar] 5 mg PO DAILY #14 07/31/20 [Rx] Furosemide 20 mg PO BID #20 07/31/20 [Rx] Magnesium Oxide 400 mg PO DAILY #10 tab 07/31/20 [Rx] Nitroglycerin 0.4 mg SL Q5M PRN #25 MDD 3 07/31/20 [Rx] Non-Formulary Medication [NF Drug] 1 each PO BID each 07/31/20 [Rx] Potassium Chloride 20 meq PO DAILY #10 tablet.er 07/31/20 [Rx] Warfarin [Coumadin] 3 mg PO DAILY@1800 #15 tablet 07/31/20 [Rx] atorvaSTATin [Lipitor] 40 mg PO BEDTIME #10 07/31/20 [Rx] carvediloL [Coreg] 25 mg PO BID #20 07/31/20 [Rx] oxyCODONE HCl/Acetaminophen [Oxycodone-Acetaminophen 5-325] 1 each PO Q6H PRN #15 07/31/20 [Rx] Patient Handouts: Famotidine tablets or gelcaps, Finasteride (Proscar) tablets, Tamsulosin capsules, Digoxin tablets or capsules - Discharge Summary/Plan Comment DC Time >30 min.: Yes (Coordination of care ) Discharge Summary/Plan Comment: As above. Extensive precautions were given to the patient, who is in agreement with the treatment plan. See Patient Instructions for further treatment and plan. - General Info Date of Service: 07/31/20 Admission Dx/Problem (Free Text: Admission Diagnosis/Problem Admission Diagnosis/Problem Weakness Functional Status: Reports: Pain Controlled, Tolerating Diet, Ambulating (With walker significantly improved), Urinating, Incentive Spirometry. Denies: New Symptoms Numeric/FACES Score: 1 (Minimal postoperative chest wall pain) - Review of Systems General: Reports: Weakness (Significantly improved). Denies: Fever, Fatigue, Malaise, Chills, Night Sweats, Appetite (Good) HEENT: Reports: Glasses. Denies: Dysphasia, Ear Pain, Eye Pain, Headaches, Post Nasal Drip, Sinus Congestion, Sore Throat, Rhinitis, Visual Changes Pulmonary: Reports: No Symptoms. Denies: Shortness of Breath, Pleuritic Chest Pain, Cough, Sputum, Hemoptysis, Wheezing Cardiovascular: Reports: No Symptoms. Denies: Chest Pain, Palpitations, Dyspnea on Exertion, Orthopnea, PND, Edema, Lightheadedness Gastrointestinal: Reports: No Symptoms. Denies: Abdominal Pain, Constipation, Decreased Appetite, Diarrhea (Somewhat loose stools yesterday with no bowel movement yet today), Difficulty Swallowing, Flatus, Hematochezia, Melena, Nausea, Vomiting Genitourinary: Reports: No Symptoms. Denies: Dysuria, Frequency, Burning, Pain, Urgency, Hematuria, Retention, Flank Pain Musculoskeletal: Reports: No Symptoms. Denies: Neck Pain, Shoulder Pain, Arm Pain, Back Pain, Leg Pain Skin: Reports: Bruising (Minimal). Denies: Pallor, Diaphoresis, Pruritis, Rash Neurological: Reports: Weakness (As above). Denies: Confusion, Dizziness, Numbness, Paresthesia, Tingling, Difficulty Walking (Improved ambulation with walker) Psychiatric: Reports: No Symptoms. Denies: Confusion, Depression, Agitation, Cravings, Hallucinations - Patient Data Vitals - Most Recent: Last Vital Signs Temp 36.8 C 07/30/20 17:43 Pulse 73 07/31/20 07:58 Resp 18 07/30/20 17:43 BP 134/70 07/31/20 07:58 Pulse Ox 100 07/30/20 17:43 Vital Signs - 24 hr 07/30/20 07/30/20 07/31/20 17:17 17:43 07:58 Temperature [ 36.8 C Oral] Temperature [ Temporal] Pulse, 72 73 Peripheral Pulse, 72 Peripheral [ Right Pulse Oximetry] Respiratory 18 Rate Blood Pressure 138/79 134/70 Blood Pressure 138/79 [Right Upper Arm] O2 Sat by Pulse 100 Oximetry 07/31/20 08:00 Temperature [ Oral] Temperature [ 36.6 C Temporal] Pulse, Peripheral Pulse, 73 Peripheral [ Right Pulse Oximetry] Respiratory 16 Rate Blood Pressure Blood Pressure 134/70 [Right Upper Arm] O2 Sat by Pulse 97 Oximetry Weight - Most Recent: 71.305 kg I&O - Last 24 hours: Intake & Output 07/30/20 07/31/20 07/31/20 22:59 06:59 14:59 Intake Total 960 300 Output Total 200 1600 Balance 760 -1300 Imaging Impressions - Last 24 hrs: Brief telemetry strip prior to discharge showed no evidence of return of his atrial fibrillation with no PVCs noted despite clinical exam as below. Chest x-ray, PA and lateral, on 07/28/2020 shows status post medial sternotomy with mild cardiomegaly and only minimal centralized CHF with no significant pulmonary infiltrates, pneumothorax, etc.. Moderate osteoarthritic and osteoporotic changes were present with mild pulmonary obstructive disease. EKG Date: 07/28/20 Time: 09:14 Rhythm: NSR Rate (Beats/Min): 70 [place]: Normal (Neutral) P-Wave: Present (Mild diffuse biphasic P waves) QRS: Normal (0.08 seconds) ST-T: Other (Stable T wave inversions in leads I, II, III, aVF, and V4 through V6 with resolved previous PVC) QT: Normal [place]/PQ Interval: 0.21 seconds representing a relatively stable first-degree AV block with extreme poor R wave progression in the anterior leads. Comparison: Change From Previous EKG (As above since 07/24/2020) EKG Interpretation Comments: 1. Stable inferolateral cardiac ischemia 2. History of PVC 3. Stable first-degree AV block Lab Results - Last 24 hrs: Laboratory Results - last 24 hr 07/30/20 07/30/20 07/31/20 Range/Units 11:08 16:56 07:47 INR POC Glucose 154 H 83 117 H (65-110) mg/dl 07/31/20 Range/Units 08:34 INR 2.0 POC Glucose (65-110) mg/dl Laboratory Tests 07/23/20 07/24/20 07/24/20 Range/Units 16:55 03:03 07:11 WBC (4.0-10.2) K/uL RBC (4.33-5.41) M/uL Hgb (13.1-16.8) g/dL Hct (39.0-49.0) % MCV (84.0-98.0) fL MCH (28.2-33.3) pg MCHC (31.7-36.0) g/dL RDW (11.2-14.1) % Plt Count (150-350) K/uL Neut % (Auto) (45.0-80.0) % Lymph % (Auto) (10.0-50.0) % [place] % (Auto) (2.0-14.0) % Eos % (Auto) (0.0-5.0) % Baso % (Auto) (0.0-2.0) % Neut # (Auto) (1.40-7.00) K/uL Lymph # (Auto) (0.50-3.50) K/uL [place] # (Auto) (0.00-1.00) K/uL Eos # (Auto) (0.00-0.50) K/uL Baso # (Auto) (0.00-0.20) K/uL PT (9.5-12.0) SEC INR Sodium (136-145) mmol/L Potassium (3.5-5.1) mmol/L Chloride (98-107) mmol/L Carbon Dioxide (21.0-32.0) mmol/L BUN (7-18) mg/dL Creatinine (0.51-1.17) mg/dL Est Cr Clr Drug Dosing mL/min Estimated GFR (MDRD) mL/min Glucose (70-99) mg/dL POC Glucose 68 99 138 H (65-110) mg/dl Uric Acid (2.6-7.2) mg/dL Calcium (8.5-10.1) mg/dL Magnesium (1.8-2.4) mg/dL Total Bilirubin (0.2-1.0) mg/dL AST (15-37) U/L ALT (12-78) U/L Alkaline Phosphatase (46-116) IU/L Troponin I (0.000-0.056) ng/mL NT-Pro-B Natriuret Pep (0-125) pg/mL Total Protein (6.4-8.2) g/dL Albumin (3.4-5.0) g/dL Specimen Type Urine Color Urine Appearance Urine pH (5.0-9.0) Ur Specific [place] (1.005-1.030) Urine Protein (NEGATIVE) mg/dL Urine Glucose (UA) (NEGATIVE) mg/dL Urine Ketones (NEGATIVE) mg/dL Urine Occult Blood (NEGATIVE) Urine Nitrite (NEGATIVE) Urine Bilirubin (NEGATIVE) Urine Urobilinogen (0.2-1.0) E.U./dL Ur Leukocyte Esterase (NEGATIVE) Urine RBC /HPF Urine WBC /HPF Ur Epithelial Cells /LPF Urine Bacteria (NONE TO FEW) /HPF Digoxin (0.90-2.00) ng/mL 07/24/20 07/24/20 07/24/20 Range/Units 11:38 13:52 13:52 WBC 13.0 H (4.0-10.2) K/uL RBC 3.53 L (4.33-5.41) M/uL Hgb 10.4 L (13.1-16.8) g/dL Hct 32.3 L (39.0-49.0) % MCV 91.5 (84.0-98.0) fL MCH 29.5 (28.2-33.3) pg MCHC 32.2 (31.7-36.0) g/dL RDW 12.6 (11.2-14.1) % Plt Count 388 H (150-350) K/uL Neut % (Auto) 67.9 (45.0-80.0) % Lymph % (Auto) 19.7 (10.0-50.0) % Min[place] % (Auto) 8.9 (2.0-14.0) % Eos % (Auto) 3.3 (0.0-5.0) % Baso % (Auto) 0.2 (0.0-2.0) % Neut # (Auto) 8.82 H (1.40-7.00) K/uL Lymph # (Auto) 2.56 (0.50-3.50) K/uL Min[place] # (Auto) 1.16 H (0.00-1.00) K/uL Eos # (Auto) 0.43 (0.00-0.50) K/uL Baso # (Auto) 0.02 (0.00-0.20) K/uL PT (9.5-12.0) SEC INR Sodium 137 (136-145) mmol/L Potassium 4.7 (3.5-5.1) mmol/L Chloride 104 (98-107) mmol/L Carbon Dioxide 23.5 (21.0-32.0) mmol/L BUN 27 H (7-18) mg/dL Creatinine 0.82 (0.51-1.17) mg/dL Est Cr Clr Drug Dosing 63.61 mL/min Estimated GFR (MDRD) > 60 mL/min Glucose 137 H (70-99) mg/dL POC Glucose 167 H (65-110) mg/dl Uric Acid 8.2 H (2.6-7.2) mg/dL Calcium 8.6 (8.5-10.1) mg/dL Magnesium 1.6 L (1.8-2.4) mg/dL Total Bilirubin 0.2 (0.2-1.0) mg/dL AST 87 H (15-37) U/L ALT 150 H (12-78) U/L Alkaline Phosphatase 81 (46-116) IU/L Troponin I (0.000-0.056) ng/mL NT-Pro-B Natriuret Pep 4802 H (0-125) pg/mL Total Protein 6.4 (6.4-8.2) g/dL Albumin 2.5 L (3.4-5.0) g/dL Specimen Type Urine Color Urine Appearance Urine pH (5.0-9.0) Ur Specific [place] (1.005-1.030) Urine Protein (NEGATIVE) mg/dL Urine Glucose (UA) (NEGATIVE) mg/dL Urine Ketones (NEGATIVE) mg/dL Urine Occult Blood (NEGATIVE) Urine Nitrite (NEGATIVE) Urine Bilirubin (NEGATIVE) Urine Urobilinogen (0.2-1.0) E.U./dL Ur Leukocyte Esterase (NEGATIVE) Urine RBC /HPF Urine WBC /HPF Ur Epithelial Cells /LPF Urine Bacteria (NONE TO FEW) /HPF Digoxin 0.76 L (0.90-2.00) ng/mL 07/24/20 07/24/20 07/25/20 Range/Units 13:52 16:58 04:36 WBC (4.0-10.2) K/uL RBC (4.33-5.41) M/uL Hgb (13.1-16.8) g/dL Hct (39.0-49.0) % MCV (84.0-98.0) fL MCH (28.2-33.3) pg MCHC (31.7-36.0) g/dL RDW (11.2-14.1) % Plt Count (150-350) K/uL Neut % (Auto) (45.0-80.0) % Lymph % (Auto) (10.0-50.0) % Mineral % (Auto) (2.0-14.0) % Eos % (Auto) (0.0-5.0) % Baso % (Auto) (0.0-2.0) % Neut # (Auto) (1.40-7.00) K/uL Lymph # (Auto) (0.50-3.50) K/uL Min[place] # (Auto) (0.00-1.00) K/uL Eos # (Auto) (0.00-0.50) K/uL Baso # (Auto) (0.00-0.20) K/uL PT 26.8 H (9.5-12.0) SEC INR 2.8 Sodium (136-145) mmol/L Potassium (3.5-5.1) mmol/L Chloride (98-107) mmol/L Carbon Dioxide (21.0-32.0) mmol/L BUN (7-18) mg/dL Creatinine (0.51-1.17) mg/dL Est Cr Clr Drug Dosing mL/min Estimated GFR (MDRD) mL/min Glucose (70-99) mg/dL POC Glucose 81 122 H (65-110) mg/dl Uric Acid (2.6-7.2) mg/dL Calcium (8.5-10.1) mg/dL Magnesium (1.8-2.4) mg/dL Total Bilirubin (0.2-1.0) mg/dL AST (15-37) U/L ALT (12-78) U/L Alkaline Phosphatase (46-116) IU/L Troponin I (0.000-0.056) ng/mL NT-Pro-B Natriuret Pep (0-125) pg/mL Total Protein (6.4-8.2) g/dL Albumin (3.4-5.0) g/dL Specimen Type Urine Color Urine Appearance Urine pH (5.0-9.0) Ur Specific [place] (1.005-1.030) Urine Protein (NEGATIVE) mg/dL Urine Glucose (UA) (NEGATIVE) mg/dL Urine Ketones (NEGATIVE) mg/dL Urine Occult Blood (NEGATIVE) Urine Nitrite (NEGATIVE) Urine Bilirubin (NEGATIVE) Urine Urobilinogen (0.2-1.0) E.U./dL Ur Leukocyte Esterase (NEGATIVE) Urine RBC /HPF Urine WBC /HPF Ur Epithelial Cells /LPF Urine Bacteria (NONE TO FEW) /HPF Digoxin (0.90-2.00) ng/mL 07/25/20 07/25/20 07/25/20 Range/Units 07:16 07:56 11:21 WBC (4.0-10.2) K/uL RBC (4.33-5.41) M/uL Hgb (13.1-16.8) g/dL Hct (39.0-49.0) % MCV (84.0-98.0) fL MCH (28.2-33.3) pg MCHC (31.7-36.0) g/dL RDW (11.2-14.1) % Plt Count (150-350) K/uL Neut % (Auto) (45.0-80.0) % Lymph % (Auto) (10.0-50.0) % Mineral % (Auto) (2.0-14.0) % Eos % (Auto) (0.0-5.0) % Baso % (Auto) (0.0-2.0) % Neut # (Auto) (1.40-7.00) K/uL Lymph # (Auto) (0.50-3.50) K/uL Mineral # (Auto) (0.00-1.00) K/uL Eos # (Auto) (0.00-0.50) K/uL Baso # (Auto) (0.00-0.20) K/uL PT (9.5-12.0) SEC INR 2.7 Sodium (136-145) mmol/L Potassium (3.5-5.1) mmol/L Chloride (98-107) mmol/L Carbon Dioxide (21.0-32.0) mmol/L BUN (7-18) mg/dL Creatinine (0.51-1.17) mg/dL Est Cr Clr Drug Dosing mL/min Estimated GFR (MDRD) mL/min Glucose (70-99) mg/dL POC Glucose 194 H 121 H (65-110) mg/dl Uric Acid (2.6-7.2) mg/dL Calcium (8.5-10.1) mg/dL Magnesium (1.8-2.4) mg/dL Total Bilirubin (0.2-1.0) mg/dL AST (15-37) U/L ALT (12-78) U/L Alkaline Phosphatase (46-116) IU/L Troponin I (0.000-0.056) ng/mL NT-Pro-B Natriuret Pep (0-125) pg/mL Total Protein (6.4-8.2) g/dL Albumin (3.4-5.0) g/dL Specimen Type Urine Color Urine Appearance Urine pH (5.0-9.0) Ur Specific [place] (1.005-1.030) Urine Protein (NEGATIVE) mg/dL Urine Glucose (UA) (NEGATIVE) mg/dL Urine Ketones (NEGATIVE) mg/dL Urine Occult Blood (NEGATIVE) Urine Nitrite (NEGATIVE) Urine Bilirubin (NEGATIVE) Urine Urobilinogen (0.2-1.0) E.U./dL Ur Leukocyte Esterase (NEGATIVE) Urine RBC /HPF Urine WBC /HPF Ur Epithelial Cells /LPF Urine Bacteria (NONE TO FEW) /HPF Digoxin (0.90-2.00) ng/mL 07/25/20 07/26/20 07/26/20 Range/Units 17:02 07:00 07:29 WBC (4.0-10.2) K/uL RBC (4.33-5.41) M/uL Hgb (13.1-16.8) g/dL Hct (39.0-49.0) % MCV (84.0-98.0) fL MCH (28.2-33.3) pg MCHC (31.7-36.0) g/dL RDW (11.2-14.1) % Plt Count (150-350) K/uL Neut % (Auto) (45.0-80.0) % Lymph % (Auto) (10.0-50.0) % [place] % (Auto) (2.0-14.0) % Eos % (Auto) (0.0-5.0) % Baso % (Auto) (0.0-2.0) % Neut # (Auto) (1.40-7.00) K/uL Lymph # (Auto) (0.50-3.50) K/uL Mineral # (Auto) (0.00-1.00) K/uL Eos # (Auto) (0.00-0.50) K/uL Baso # (Auto) (0.00-0.20) K/uL PT (9.5-12.0) SEC INR 2.5 Sodium (136-145) mmol/L Potassium (3.5-5.1) mmol/L Chloride (98-107) mmol/L Carbon Dioxide (21.0-32.0) mmol/L BUN (7-18) mg/dL Creatinine (0.51-1.17) mg/dL Est Cr Clr Drug Dosing mL/min Estimated GFR (MDRD) mL/min Glucose (70-99) mg/dL POC Glucose 121 H 122 H (65-110) mg/dl Uric Acid (2.6-7.2) mg/dL Calcium (8.5-10.1) mg/dL Magnesium (1.8-2.4) mg/dL Total Bilirubin (0.2-1.0) mg/dL AST (15-37) U/L ALT (12-78) U/L Alkaline Phosphatase (46-116) IU/L Troponin I (0.000-0.056) ng/mL NT-Pro-B Natriuret Pep (0-125) pg/mL Total Protein (6.4-8.2) g/dL Albumin (3.4-5.0) g/dL Specimen Type Urine Color Urine Appearance Urine pH (5.0-9.0) Ur Specific [place] (1.005-1.030) Urine Protein (NEGATIVE) mg/dL Urine Glucose (UA) (NEGATIVE) mg/dL Urine Ketones (NEGATIVE) mg/dL Urine Occult Blood (NEGATIVE) Urine Nitrite (NEGATIVE) Urine Bilirubin (NEGATIVE) Urine Urobilinogen (0.2-1.0) E.U./dL Ur Leukocyte Esterase (NEGATIVE) Urine RBC /HPF Urine WBC /HPF Ur Epithelial Cells /LPF Urine Bacteria (NONE TO FEW) /HPF Digoxin (0.90-2.00) ng/mL 03/07/26/20 07/27/20 Range/Units 11:34 16:58 07:29 WBC (4.0-10.2) K/uL RBC (4.33-5.41) M/uL Hgb (13.1-16.8) g/dL Hct (39.0-49.0) % MCV (84.0-98.0) fL MCH (28.2-33.3) pg MCHC (31.7-36.0) g/dL RDW (11.2-14.1) % Plt Count (150-350) K/uL Neut % (Auto) (45.0-80.0) % Lymph % (Auto) (10.0-50.0) % Mineral % (Auto) (2.0-14.0) % Eos % (Auto) (0.0-5.0) % Baso % (Auto) (0.0-2.0) % Neut # (Auto) (1.40-7.00) K/uL Lymph # (Auto) (0.50-3.50) K/uL Mineral # (Auto) (0.00-1.00) K/uL Eos # (Auto) (0.00-0.50) K/uL Baso # (Auto) (0.00-0.20) K/uL PT (9.5-12.0) SEC INR Sodium (136-145) mmol/L Potassium (3.5-5.1) mmol/L Chloride (98-107) mmol/L Carbon Dioxide (21.0-32.0) mmol/L BUN (7-18) mg/dL Creatinine (0.51-1.17) mg/dL Est Cr Clr Drug Dosing mL/min Estimated GFR (MDRD) mL/min Glucose (70-99) mg/dL POC Glucose 131 H 96 91 (65-110) mg/dl Uric Acid (2.6-7.2) mg/dL Calcium (8.5-10.1) mg/dL Magnesium (1.8-2.4) mg/dL Total Bilirubin (0.2-1.0) mg/dL AST (15-37) U/L ALT (12-78) U/L Alkaline Phosphatase (46-116) IU/L Troponin I (0.000-0.056) ng/mL NT-Pro-B Natriuret Pep (0-125) pg/mL Total Protein (6.4-8.2) g/dL Albumin (3.4-5.0) g/dL Specimen Type Urine Color Urine Appearance Urine pH (5.0-9.0) Ur Specific [place] (1.005-1.030) Urine Protein (NEGATIVE) mg/dL Urine Glucose (UA) (NEGATIVE) mg/dL Urine Ketones (NEGATIVE) mg/dL Urine Occult Blood (NEGATIVE) Urine Nitrite (NEGATIVE) Urine Bilirubin (NEGATIVE) Urine Urobilinogen (0.2-1.0) E.U./dL Ur Leukocyte Esterase (NEGATIVE) Urine RBC /HPF Urine WBC /HPF Ur Epithelial Cells /LPF Urine Bacteria (NONE TO FEW) /HPF Digoxin (0.90-2.00) ng/mL 07/27/20 07/27/20 07/27/20 Range/Units 07:38 07:38 07:38 WBC 12.9 H (4.0-10.2) K/uL RBC 3.63 L (4.33-5.41) M/uL Hgb 10.7 L (13.1-16.8) g/dL Hct 33.4 L (39.0-49.0) % MCV 92.0 (84.0-98.0) fL MCH 29.5 (28.2-33.3) pg MCHC 32.0 (31.7-36.0) g/dL RDW 12.8 (11.2-14.1) % Plt Count 367 H (150-350) K/uL Neut % (Auto) 68.8 (45.0-80.0) % Lymph % (Auto) 19.5 (10.0-50.0) % Mineral % (Auto) 9.0 (2.0-14.0) % Eos % (Auto) 2.5 (0.0-5.0) % Baso % (Auto) 0.2 (0.0-2.0) % Neut # (Auto) 8.91 H (1.40-7.00) K/uL Lymph # (Auto) 2.52 (0.50-3.50) K/uL Mineral # (Auto) 1.16 H (0.00-1.00) K/uL Eos # (Auto) 0.32 (0.00-0.50) K/uL Baso # (Auto) 0.02 (0.00-0.20) K/uL PT 17.7 H D (9.5-12.0) SEC INR 1.8 Sodium 137 (136-145) mmol/L Potassium 5.4 H (3.5-5.1) mmol/L Chloride 102 (98-107) mmol/L Carbon Dioxide 26.1 (21.0-32.0) mmol/L BUN 19 H (7-18) mg/dL Creatinine 0.87 (0.51-1.17) mg/dL Est Cr Clr Drug Dosing 59.95 mL/min Estimated GFR (MDRD) > 60 mL/min Glucose 106 H (70-99) mg/dL POC Glucose (65-110) mg/dl Uric Acid (2.6-7.2) mg/dL Calcium 9.1 (8.5-10.1) mg/dL Magnesium 1.9 (1.8-2.4) mg/dL Total Bilirubin 0.3 (0.2-1.0) mg/dL AST 48 H (15-37) U/L ALT 116 H (12-78) U/L Alkaline Phosphatase 93 (46-116) IU/L Troponin I (0.000-0.056) ng/mL NT-Pro-B Natriuret Pep 3572 H (0-125) pg/mL Total Protein 6.8 (6.4-8.2) g/dL Albumin 2.7 L (3.4-5.0) g/dL Specimen Type Urine Color Urine Appearance Urine pH (5.0-9.0) Ur Specific [place] (1.005-1.030) Urine Protein (NEGATIVE) mg/dL Urine Glucose (UA) (NEGATIVE) mg/dL Urine Ketones (NEGATIVE) mg/dL Urine Occult Blood (NEGATIVE) Urine Nitrite (NEGATIVE) Urine Bilirubin (NEGATIVE) Urine Urobilinogen (0.2-1.0) E.U./dL Ur Leukocyte Esterase (NEGATIVE) Urine RBC /HPF Urine WBC /HPF Ur Epithelial Cells /LPF Urine Bacteria (NONE TO FEW) /HPF Digoxin (0.90-2.00) ng/mL 07/27/20 07/27/20 07/27/20 Range/Units 12:06 13:42 17:04 WBC (4.0-10.2) K/uL RBC (4.33-5.41) M/uL Hgb (13.1-16.8) g/dL Hct (39.0-49.0) % MCV (84.0-98.0) fL MCH (28.2-33.3) pg MCHC (31.7-36.0) g/dL RDW (11.2-14.1) % Plt Count (150-350) K/uL Neut % (Auto) (45.0-80.0) % Lymph % (Auto) (10.0-50.0) % Mineral % (Auto) (2.0-14.0) % Eos % (Auto) (0.0-5.0) % Baso % (Auto) (0.0-2.0) % Neut # (Auto) (1.40-7.00) K/uL Lymph # (Auto) (0.50-3.50) K/uL Mineral # (Auto) (0.00-1.00) K/uL Eos # (Auto) (0.00-0.50) K/uL Baso # (Auto) (0.00-0.20) K/uL PT (9.5-12.0) SEC INR Sodium (136-145) mmol/L Potassium (3.5-5.1) mmol/L Chloride (98-107) mmol/L Carbon Dioxide (21.0-32.0) mmol/L BUN (7-18) mg/dL Creatinine (0.51-1.17) mg/dL Est Cr Clr Drug Dosing mL/min Estimated GFR (MDRD) mL/min Glucose (70-99) mg/dL POC Glucose 92 66 (65-110) mg/dl Uric Acid (2.6-7.2) mg/dL Calcium (8.5-10.1) mg/dL Magnesium (1.8-2.4) mg/dL Total Bilirubin (0.2-1.0) mg/dL AST (15-37) U/L ALT (12-78) U/L Alkaline Phosphatase (46-116) IU/L Troponin I (0.000-0.056) ng/mL NT-Pro-B Natriuret Pep (0-125) pg/mL Total Protein (6.4-8.2) g/dL Albumin (3.4-5.0) g/dL Specimen Type Urincc Urine Color Yellow Urine Appearance Clear Urine pH 5.0 (5.0-9.0) Ur Specific [place] 1.015 (1.005-1.030) Urine Protein Negative (NEGATIVE) mg/dL Urine Glucose (UA) Negative (NEGATIVE) mg/dL Urine Ketones Negative (NEGATIVE) mg/dL Urine Occult Blood Trace-lysed H (NEGATIVE) Urine Nitrite Negative (NEGATIVE) Urine Bilirubin Negative (NEGATIVE) Urine Urobilinogen 0.2 (0.2-1.0) E.U./dL Ur Leukocyte Esterase Negative (NEGATIVE) Urine RBC 0-5 /HPF Urine WBC 0-5 /HPF Ur Epithelial Cells Rare /LPF Urine Bacteria Rare (NONE TO FEW) /HPF Digoxin (0.90-2.00) ng/mL 07/28/20 07/28/20 07/28/20 Range/Units 07:07 07:23 09:40 WBC (4.0-10.2) K/uL RBC (4.33-5.41) M/uL Hgb (13.1-16.8) g/dL Hct (39.0-49.0) % MCV (84.0-98.0) fL MCH (28.2-33.3) pg MCHC (31.7-36.0) g/dL RDW (11.2-14.1) % Plt Count (150-350) K/uL Neut % (Auto) (45.0-80.0) % Lymph % (Auto) (10.0-50.0) % Mineral % (Auto) (2.0-14.0) % Eos % (Auto) (0.0-5.0) % Baso % (Auto) (0.0-2.0) % Neut # (Auto) (1.40-7.00) K/uL Lymph # (Auto) (0.50-3.50) K/uL Mineral # (Auto) (0.00-1.00) K/uL Eos # (Auto) (0.00-0.50) K/uL Baso # (Auto) (0.00-0.20) K/uL PT (9.5-12.0) SEC INR 2.0 Sodium (136-145) mmol/L Potassium (3.5-5.1) mmol/L Chloride (98-107) mmol/L Carbon Dioxide (21.0-32.0) mmol/L BUN (7-18) mg/dL Creatinine (0.51-1.17) mg/dL Est Cr Clr Drug Dosing mL/min Estimated GFR (MDRD) mL/min Glucose (70-99) mg/dL POC Glucose 104 (65-110) mg/dl Uric Acid (2.6-7.2) mg/dL Calcium (8.5-10.1) mg/dL Magnesium (1.8-2.4) mg/dL Total Bilirubin (0.2-1.0) mg/dL AST (15-37) U/L ALT (12-78) U/L Alkaline Phosphatase (46-116) IU/L Troponin I (0.000-0.056) ng/mL NT-Pro-B Natriuret Pep 2953 H (0-125) pg/mL Total Protein (6.4-8.2) g/dL Albumin (3.4-5.0) g/dL Specimen Type Urine Color Urine Appearance Urine pH (5.0-9.0) Ur Specific [place] (1.005-1.030) Urine Protein (NEGATIVE) mg/dL Urine Glucose (UA) (NEGATIVE) mg/dL Urine Ketones (NEGATIVE) mg/dL Urine Occult Blood (NEGATIVE) Urine Nitrite (NEGATIVE) Urine Bilirubin (NEGATIVE) Urine Urobilinogen (0.2-1.0) E.U./dL Ur Leukocyte Esterase (NEGATIVE) Urine RBC /HPF Urine WBC /HPF Ur Epithelial Cells /LPF Urine Bacteria (NONE TO FEW) /HPF Digoxin (0.90-2.00) ng/mL 07/28/20 07/28/20 07/28/20 Range/Units 09:40 11:35 16:50 WBC (4.0-10.2) K/uL RBC (4.33-5.41) M/uL Hgb (13.1-16.8) g/dL Hct (39.0-49.0) % MCV (84.0-98.0) fL MCH (28.2-33.3) pg MCHC (31.7-36.0) g/dL RDW (11.2-14.1) % Plt Count (150-350) K/uL Neut % (Auto) (45.0-80.0) % Lymph % (Auto) (10.0-50.0) % Mineral % (Auto) (2.0-14.0) % Eos % (Auto) (0.0-5.0) % Baso % (Auto) (0.0-2.0) % Neut # (Auto) (1.40-7.00) K/uL Lymph # (Auto) (0.50-3.50) K/uL Mineral # (Auto) (0.00-1.00) K/uL Eos # (Auto) (0.00-0.50) K/uL Baso # (Auto) (0.00-0.20) K/uL PT (9.5-12.0) SEC INR Sodium (136-145) mmol/L Potassium (3.5-5.1) mmol/L Chloride (98-107) mmol/L Carbon Dioxide (21.0-32.0) mmol/L BUN (7-18) mg/dL Creatinine (0.51-1.17) mg/dL Est Cr Clr Drug Dosing mL/min Estimated GFR (MDRD) mL/min Glucose (70-99) mg/dL POC Glucose 148 H 110 (65-110) mg/dl Uric Acid (2.6-7.2) mg/dL Calcium (8.5-10.1) mg/dL Magnesium (1.8-2.4) mg/dL Total Bilirubin (0.2-1.0) mg/dL AST (15-37) U/L ALT (12-78) U/L Alkaline Phosphatase (46-116) IU/L Troponin I 0.018 (0.000-0.056) ng/mL NT-Pro-B Natriuret Pep (0-125) pg/mL Total Protein (6.4-8.2) g/dL Albumin (3.4-5.0) g/dL Specimen Type Urine Color Urine Appearance Urine pH (5.0-9.0) Ur Specific [place] (1.005-1.030) Urine Protein (NEGATIVE) mg/dL Urine Glucose (UA) (NEGATIVE) mg/dL Urine Ketones (NEGATIVE) mg/dL Urine Occult Blood (NEGATIVE) Urine Nitrite (NEGATIVE) Urine Bilirubin (NEGATIVE) Urine Urobilinogen (0.2-1.0) E.U./dL Ur Leukocyte Esterase (NEGATIVE) Urine RBC /HPF Urine WBC /HPF Ur Epithelial Cells /LPF Urine Bacteria (NONE TO FEW) /HPF Digoxin (0.90-2.00) ng/mL 07/29/20 07/29/20 07/29/20 Range/Units 07:24 07:28 07:28 WBC 13.4 H (4.0-10.2) K/uL RBC 3.77 L (4.33-5.41) M/uL Hgb 11.1 L (13.1-16.8) g/dL Hct 34.9 L (39.0-49.0) % MCV 92.6 (84.0-98.0) fL MCH 29.4 (28.2-33.3) pg MCHC 31.8 (31.7-36.0) g/dL RDW 12.9 (11.2-14.1) % Plt Count 366 H (150-350) K/uL Neut % (Auto) 76.8 (45.0-80.0) % Lymph % (Auto) 14.1 (10.0-50.0) % Mineral % (Auto) 8.0 (2.0-14.0) % Eos % (Auto) 1.0 (0.0-5.0) % Baso % (Auto) 0.1 (0.0-2.0) % Neut # (Auto) 10.29 H (1.40-7.00) K/uL Lymph # (Auto) 1.90 (0.50-3.50) K/uL Mineral # (Auto) 1.08 H (0.00-1.00) K/uL Eos # (Auto) 0.14 (0.00-0.50) K/uL Baso # (Auto) 0.02 (0.00-0.20) K/uL PT 15.4 H (9.5-12.0) SEC INR 1.6 Sodium (136-145) mmol/L Potassium (3.5-5.1) mmol/L Chloride (98-107) mmol/L Carbon Dioxide (21.0-32.0) mmol/L BUN (7-18) mg/dL Creatinine (0.51-1.17) mg/dL Est Cr Clr Drug Dosing mL/min Estimated GFR (MDRD) mL/min Glucose (70-99) mg/dL POC Glucose 128 H (65-110) mg/dl Uric Acid (2.6-7.2) mg/dL Calcium (8.5-10.1) mg/dL Magnesium (1.8-2.4) mg/dL Total Bilirubin (0.2-1.0) mg/dL AST (15-37) U/L ALT (12-78) U/L Alkaline Phosphatase (46-116) IU/L Troponin I (0.000-0.056) ng/mL NT-Pro-B Natriuret Pep (0-125) pg/mL Total Protein (6.4-8.2) g/dL Albumin (3.4-5.0) g/dL Specimen Type Urine Color Urine Appearance Urine pH (5.0-9.0) Ur Specific [place] (1.005-1.030) Urine Protein (NEGATIVE) mg/dL Urine Glucose (UA) (NEGATIVE) mg/dL Urine Ketones (NEGATIVE) mg/dL Urine Occult Blood (NEGATIVE) Urine Nitrite (NEGATIVE) Urine Bilirubin (NEGATIVE) Urine Urobilinogen (0.2-1.0) E.U./dL Ur Leukocyte Esterase (NEGATIVE) Urine RBC /HPF Urine WBC /HPF Ur Epithelial Cells /LPF Urine Bacteria (NONE TO FEW) /HPF Digoxin (0.90-2.00) ng/mL 07/29/20 07/29/20 07/29/20 Range/Units 07:28 11:17 17:12 WBC (4.0-10.2) K/uL RBC (4.33-5.41) M/uL Hgb (13.1-16.8) g/dL Hct (39.0-49.0) % MCV (84.0-98.0) fL MCH (28.2-33.3) pg MCHC (31.7-36.0) g/dL RDW (11.2-14.1) % Plt Count (150-350) K/uL Neut % (Auto) (45.0-80.0) % Lymph % (Auto) (10.0-50.0) % Mineral % (Auto) (2.0-14.0) % Eos % (Auto) (0.0-5.0) % Baso % (Auto) (0.0-2.0) % Neut # (Auto) (1.40-7.00) K/uL Lymph # (Auto) (0.50-3.50) K/uL Mineral # (Auto) (0.00-1.00) K/uL Eos # (Auto) (0.00-0.50) K/uL Baso # (Auto) (0.00-0.20) K/uL PT (9.5-12.0) SEC INR Sodium 137 (136-145) mmol/L Potassium 4.7 (3.5-5.1) mmol/L Chloride 99 (98-107) mmol/L Carbon Dioxide 28.6 (21.0-32.0) mmol/L BUN 24 H (7-18) mg/dL Creatinine 1.00 (0.51-1.17) mg/dL Est Cr Clr Drug Dosing 52.16 mL/min Estimated GFR (MDRD) > 60 mL/min Glucose 136 H (70-99) mg/dL POC Glucose 198 H 106 (65-110) mg/dl Uric Acid (2.6-7.2) mg/dL Calcium 9.5 (8.5-10.1) mg/dL Magnesium 2.0 (1.8-2.4) mg/dL Total Bilirubin 0.3 (0.2-1.0) mg/dL AST 26 (15-37) U/L ALT 77 (12-78) U/L Alkaline Phosphatase 99 (46-116) IU/L Troponin I 0.021 (0.000-0.056) ng/mL NT-Pro-B Natriuret Pep 2537 H (0-125) pg/mL Total Protein 7.4 (6.4-8.2) g/dL Albumin 3.1 L (3.4-5.0) g/dL Specimen Type Urine Color Urine Appearance Urine pH (5.0-9.0) Ur Specific [place] (1.005-1.030) Urine Protein (NEGATIVE) mg/dL Urine Glucose (UA) (NEGATIVE) mg/dL Urine Ketones (NEGATIVE) mg/dL Urine Occult Blood (NEGATIVE) Urine Nitrite (NEGATIVE) Urine Bilirubin (NEGATIVE) Urine Urobilinogen (0.2-1.0) E.U./dL Ur Leukocyte Esterase (NEGATIVE) Urine RBC /HPF Urine WBC /HPF Ur Epithelial Cells /LPF Urine Bacteria (NONE TO FEW) /HPF Digoxin (0.90-2.00) ng/mL 07/30/20 07/30/20 07/30/20 Range/Units 07:44 11:08 16:56 WBC (4.0-10.2) K/uL RBC (4.33-5.41) M/uL Hgb (13.1-16.8) g/dL Hct (39.0-49.0) % MCV (84.0-98.0) fL MCH (28.2-33.3) pg MCHC (31.7-36.0) g/dL RDW (11.2-14.1) % Plt Count (150-350) K/uL Neut % (Auto) (45.0-80.0) % Lymph % (Auto) (10.0-50.0) % Mineral % (Auto) (2.0-14.0) % Eos % (Auto) (0.0-5.0) % Baso % (Auto) (0.0-2.0) % Neut # (Auto) (1.40-7.00) K/uL Lymph # (Auto) (0.50-3.50) K/uL Mineral # (Auto) (0.00-1.00) K/uL Eos # (Auto) (0.00-0.50) K/uL Baso # (Auto) (0.00-0.20) K/uL PT (9.5-12.0) SEC INR Sodium (136-145) mmol/L Potassium (3.5-5.1) mmol/L Chloride (98-107) mmol/L Carbon Dioxide (21.0-32.0) mmol/L BUN (7-18) mg/dL Creatinine (0.51-1.17) mg/dL Est Cr Clr Drug Dosing mL/min Estimated GFR (MDRD) mL/min Glucose (70-99) mg/dL POC Glucose 123 H 154 H 83 (65-110) mg/dl Uric Acid (2.6-7.2) mg/dL Calcium (8.5-10.1) mg/dL Magnesium (1.8-2.4) mg/dL Total Bilirubin (0.2-1.0) mg/dL AST (15-37) U/L ALT (12-78) U/L Alkaline Phosphatase (46-116) IU/L Troponin I (0.000-0.056) ng/mL NT-Pro-B Natriuret Pep (0-125) pg/mL Total Protein (6.4-8.2) g/dL Albumin (3.4-5.0) g/dL Specimen Type Urine Color Urine Appearance Urine pH (5.0-9.0) Ur Specific [place] (1.005-1.030) Urine Protein (NEGATIVE) mg/dL Urine Glucose (UA) (NEGATIVE) mg/dL Urine Ketones (NEGATIVE) mg/dL Urine Occult Blood (NEGATIVE) Urine Nitrite (NEGATIVE) Urine Bilirubin (NEGATIVE) Urine Urobilinogen (0.2-1.0) E.U./dL Ur Leukocyte Esterase (NEGATIVE) Urine RBC /HPF Urine WBC /HPF Ur Epithelial Cells /LPF Urine Bacteria (NONE TO FEW) /HPF Digoxin (0.90-2.00) ng/mL 07/31/20 07/31/20 Range/Units 07:47 08:34 WBC (4.0-10.2) K/uL RBC (4.33-5.41) M/uL Hgb (13.1-16.8) g/dL Hct (39.0-49.0) % MCV (84.0-98.0) fL MCH (28.2-33.3) pg MCHC (31.7-36.0) g/dL RDW (11.2-14.1) % Plt Count (150-350) K/uL Neut % (Auto) (45.0-80.0) % Lymph % (Auto) (10.0-50.0) % Mineral % (Auto) (2.0-14.0) % Eos % (Auto) (0.0-5.0) % Baso % (Auto) (0.0-2.0) % Neut # (Auto) (1.40-7.00) K/uL Lymph # (Auto) (0.50-3.50) K/uL Mineral # (Auto) (0.00-1.00) K/uL Eos # (Auto) (0.00-0.50) K/uL Baso # (Auto) (0.00-0.20) K/uL PT (9.5-12.0) SEC INR 2.0 Sodium (136-145) mmol/L Potassium (3.5-5.1) mmol/L Chloride (98-107) mmol/L Carbon Dioxide (21.0-32.0) mmol/L BUN (7-18) mg/dL Creatinine (0.51-1.17) mg/dL Est Cr Clr Drug Dosing mL/min Estimated GFR (MDRD) mL/min Glucose (70-99) mg/dL POC Glucose 117 H (65-110) mg/dl Uric Acid (2.6-7.2) mg/dL Calcium (8.5-10.1) mg/dL Magnesium (1.8-2.4) mg/dL Total Bilirubin (0.2-1.0) mg/dL AST (15-37) U/L ALT (12-78) U/L Alkaline Phosphatase (46-116) IU/L Troponin I (0.000-0.056) ng/mL NT-Pro-B Natriuret Pep (0-125) pg/mL Total Protein (6.4-8.2) g/dL Albumin (3.4-5.0) g/dL Specimen Type Urine Color Urine Appearance Urine pH (5.0-9.0) Ur Specific [place] (1.005-1.030) Urine Protein (NEGATIVE) mg/dL Urine Glucose (UA) (NEGATIVE) mg/dL Urine Ketones (NEGATIVE) mg/dL Urine Occult Blood (NEGATIVE) Urine Nitrite (NEGATIVE) Urine Bilirubin (NEGATIVE) Urine Urobilinogen (0.2-1.0) E.U./dL Ur Leukocyte Esterase (NEGATIVE) Urine RBC /HPF Urine WBC /HPF Ur Epithelial Cells /LPF Urine Bacteria (NONE TO FEW) /HPF Digoxin (0.90-2.00) ng/mL DAVID Results - Last 24 hrs: Microbiology 07/27/20 13:42 Urine, Clean Catch Urine Culture - Final NO GROWTH AFTER 2 DAYS Med Orders - Current: Current Medications Acetaminophen (Acetaminophen 500 Mg Tab) 1,000 mg PO BID PRN PRN Reason: Pain Last Admin: 07/30/20 04:44 Dose: 1,000 mg Documented by: Al Hydroxide/Mg Hydroxide (Aluminum Hydroxide/Magnesium Hydroxide/Simethicone Susp 30 Ml Cup) 30 ml PO QID PRN PRN Reason: Heartburn Last Admin: 07/27/20 22:25 Dose: 30 ml Documented by: Aspirin (Aspirin 81 Mg Tab.Ec) 81 mg PO DAILY [facility] Last Admin: 07/31/20 07:54 Dose: 81 mg Documented by: Atorvastatin Calcium (Atorvastatin 40 Mg Tab) 40 mg PO BEDTIME [facility] Last Admin: 07/30/20 19:34 Dose: 40 mg Documented by: Carvedilol (Carvedilol 25 Mg Tab) 25 mg PO BID [facility] Last Admin: 07/31/20 07:58 Dose: 25 mg Documented by: Clopidogrel Bisulfate (Clopidogrel 75 Mg Tab) 75 mg PO DAILY [facility] Last Admin: 07/31/20 07:53 Dose: 75 mg Documented by: Dextrose/Water (50% Dextrose In Water 50 Ml Syringe) 50 ml IV ASDIRECTED PRN PRN Reason: Hypoglycemia Digoxin (Digoxin 125 Mcg Tab) 125 mcg PO DAILY [facility] Last Admin: 07/31/20 07:58 Dose: 125 mcg Documented by: Docusate Sodium (Docusate Sodium 100 Mg Cap) 100 mg PO BID PRN PRN Reason: Constipation Famotidine (Famotidine 20 Mg Tab) 20 mg PO DAILY [facility] Last Admin: 07/31/20 07:54 Dose: 20 mg Documented by: Finasteride (Finasteride 5 Mg Tab) 5 mg PO DAILY [facility] Last Admin: 07/31/20 07:53 Dose: 5 mg Documented by: Furosemide (Furosemide 40 Mg/4 Ml Vial) 40 mg IVPUSH Q8H [facility] Last Admin: 07/31/20 03:45 Dose: 40 mg Documented by: Glipizide (Glipizide 5 Mg Tab) 10 mg PO BID [facility] Last Admin: 07/31/20 07:54 Dose: 10 mg Documented by: Glucagon (Glucagon,Human Recombinant 1 Mg Vial) 1 mg IM ASDIRECTED PRN PRN Reason: Hypoglycemia Insulin Human Lispro (Insulin Lispro 100 Units/Ml 3 Ml Vial) 0 unit SUBCUT TIDAC [facility]; Protocol Last Admin: 07/31/20 07:54 Dose: Not Given Documented by: Ketoconazole (Ketoconazole 2% Crm 30 Gm Tube) 0 gm TOP BID [facility] Last Admin: 07/31/20 07:55 Dose: Not Given Documented by: Ketoconazole (Ketoconazole 2% Crm 30 Gm Tube) 1 gm TOP ASDIRECTED PRN PRN Reason: Urethritis Last Admin: 07/30/20 19:51 Dose: 1 applic Documented by: Lisinopril (Lisinopril 20 Mg Tab) 20 mg PO DAILY [facility] Last Admin: 07/31/20 07:58 Dose: 20 mg Documented by: Magnesium Oxide (Magnesium Oxide 400 Mg Tab) 400 mg PO BID [facility] Last Admin: 07/31/20 07:54 Dose: 400 mg Documented by: Metformin HCl (Metformin 500 Mg Tab) 750 mg PO TIDMEALS [facility] Last Admin: 07/31/20 07:52 Dose: 750 mg Documented by: Nitroglycerin (Nitroglycerin 0.4 Mg Tab.Sl) 0.4 mg SL Q5M PRN PRN Reason: Angina Hylands Leg Cramps (Tabets) 1 each PO BID [facility] Last Admin: 07/31/20 07:55 Dose: 1 each Documented by: Cinnamon 1000mg (Capsules) 1 each PO BID [facility] Last Admin: 07/31/20 07:55 Dose: Not Given Documented by: Oxycodone/Acetaminophen (Acetaminophen/Oxycodone 325-5 Mg Tab) 1 tab PO Q6H PRN PRN Reason: Pain Last Admin: 07/30/20 20:59 Dose: 1 tab Documented by: Phenyleph/Shark Oil/Min Oil/Petrol (Mineral Oil/Petrolatum/Phenylephrine/Shark Liver Oil Oint 57 Gm Tube) 0 gm RECTAL ASDIRECTED PRN PRN Reason: Hemorrhoids Last Admin: 07/30/20 19:50 Dose: 1 applic Documented by: Potassium Chloride (Potassium Chloride 20 Meq Tab.Er) 20 meq PO TID [facility] Last Admin: 07/31/20 07:53 Dose: 20 meq Documented by: Sodium Chloride (Sodium Chloride 0.9% 10 Ml Syringe) 10 ml FLUSH ASDIRECTED PRN PRN Reason: Keep Vein Open Last Admin: 07/31/20 03:50 Dose: 10 ml Documented by: Tamsulosin HCl (Tamsulosin 0.4 Mg Cap.Er) 0.4 mg PO DAILY [facility] Last Admin: 07/31/20 07:53 Dose: 0.4 mg Documented by: Temazepam (Temazepam 15 Mg Cap) 15 mg PO BEDTIME PRN PRN Reason: Sleep Warfarin Sodium (Warfarin 1 Mg Tab) 3 mg PO DAILY@1800 [facility] Last Admin: 07/30/20 17:15 Dose: 3 mg Documented by: Discontinued Medications Furosemide (Furosemide 20 Mg Tab) 20 mg PO DAILY [facility] Last Admin: 07/24/20 08:27 Dose: 20 mg Documented by: Furosemide (Furosemide 20 Mg Tab) 40 mg PO DAILY [facility] Last Admin: 07/28/20 07:44 Dose: 40 mg Documented by: Furosemide (Furosemide 40 Mg Tab) 40 mg PO ONETIME ONE Stop: 07/27/20 12:01 Last Admin: 07/27/20 12:08 Dose: 40 mg Documented by: Non-Formulary Medication (Cinnamon Bark [Cinnamon]) 500 mg PO BID [facility] Last Admin: 07/24/20 08:06 Dose: Not Given Documented by: Non-Formulary Medication (Omeprazole [Omeprazole]) 40 mg PO DAILY [facility] Potassium Chloride (Potassium Chloride 20 Meq Tab.Er) 20 meq PO DAILY [facility] Last Admin: 07/27/20 07:39 Dose: 20 meq Documented by: Warfarin Sodium (Warfarin 2.5 Mg Tab) 2.5 mg PO ONETIME ONE Stop: 07/23/20 17:01 Last Admin: 07/23/20 18:11 Dose: 2.5 mg Documented by: Warfarin Sodium (Warfarin 2 Mg Tab) 2 mg PO ONETIME ONE Stop: 07/24/20 18:01 Last Admin: 07/24/20 17:40 Dose: 2 mg Documented by: Warfarin Sodium (Warfarin 2 Mg Tab) 2 mg PO ONETIME ONE Stop: 07/25/20 18:01 Last Admin: 07/25/20 17:04 Dose: 2 mg Documented by: Warfarin Sodium (Warfarin 2 Mg Tab) 2 mg PO ONETIME ONE Stop: 07/26/20 18:01 Last Admin: 07/26/20 17:04 Dose: 2 mg Documented by: Warfarin Sodium (Warfarin 2.5 Mg Tab) 2.5 mg PO DAILY@1800 [facility] Last Admin: 07/28/20 17:16 Dose: 2.5 mg Documented by: - Exam Quality Assessment: Reports: DVT Prophylaxis (Coumadin). Denies: Supplemental Oxygen, Central Line/PICC, Urine Catheter, Skin Breakdown, Restraints General: Reports: Alert, Oriented, Cooperative, Sedated HEENT: Reports: Pupils Equal, Pupils Reactive, EOMI, Mucous Membr. Moist/Cogswell, Other (Patient is wearing glasses). Denies: Scleral Icterus Neck: Reports: Supple, No JVD, No Thyromegaly, Carotid Bruit (Mild bilateral carotid bruits). Denies: Lymphadenopathy Lungs: Reports: Normal Respiratory Effort, Rales (Mild bilateral baseline), Other (Medial sternotomy incision is intact, clean, and dry with no evidence of infection). 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 Denies: Gallops, Rubs GI/Abdominal Exam: Normal Bowel Sounds, Soft, Non-Tender, No Organomegaly, No Distention, No Abnormal Bruit, No Mass, Pelvis Stable, Distended. No: Guarding (Male) Exam: Deferred Rectal (Males) Exam: Deferred Back Exam: Reports: Normal Inspection, Full Range of Motion. Denies: CVA Tende rness (L), CVA Tenderness (R), Muscle Spasm Extremities: Normal Inspection, Normal Range of Motion, Non-Tender, No Pedal Edema, Normal Capillary Refill. No: Kenji's Sign Skin: Reports: Ecchymosis (Minimal with no petechiae), Other (As above) Wound/Incisions: Reports: Healing Well Neurological: Reports: No New Focal Deficit, Other (No clinical orthostasis. Negative Babinski's) Psy/Mental Status: Reports: Alert, Normal Affect, Normal Mood. Denies: Agitated, Hallucinations, Withdrawal Symptoms
== END 2020-07-31 14:00 | disposition home or self-care (01) | DRG 947 ==
LOC: LL.MS 13:00
PROVIDERS: ADMIT Family Medicine; ATTEND Family Medicine
DX: R53.1 Weakness (principal); I21.4 Non-ST elevation (NSTEMI) myocardial infarction; I50.42 Chronic combined systolic (congestive) and diastolic (congestive) heart failure; I25.810 Atherosclerosis of coronary artery bypass graft(s) without angina pectoris; N17.9 Acute kidney failure, unspecified; I49.8 Other specified cardiac arrhythmias; I11.0 Hypertensive heart disease with heart failure; E78.5 Hyperlipidemia, unspecified; E11.9 Type 2 diabetes mellitus without complications; M89.49 Other hypertrophic osteoarthropathy, multiple sites; K21.9 Gastro-esophageal reflux disease without esophagitis; M81.0 Age-related osteoporosis without current pathological fracture; J44.9 Chronic obstructive pulmonary disease, unspecified; H91.90 Unspecified hearing loss, unspecified ear; H54.7 Unspecified visual loss; E78.00 Pure hypercholesterolemia, unspecified; I27.20 Pulmonary hypertension, unspecified; K59.09 Other constipation; K44.9 Diaphragmatic hernia without obstruction or gangrene; N40.0 Benign prostatic hyperplasia without lower urinary tract symptoms; M54.9 Dorsalgia, unspecified; M54.2 Cervicalgia; G89.29 Other chronic pain; E87.5 Hyperkalemia; E88.09 Other disorders of plasma-protein metabolism, not elsewhere classified; Z90.49 Acquired absence of other specified parts of digestive tract; Z88.8 Allergy status to other drugs, medicaments and biological substances; Z79.82 Long term (current) use of aspirin; Z79.899 Other long term (current) drug therapy; Z79.84 Long term (current) use of oral hypoglycemic drugs; Z95.5 Presence of coronary angioplasty implant and graft; Z87.442 Personal history of urinary calculi; Z95.1 Presence of aortocoronary bypass graft; Z87.891 Personal history of nicotine dependence
CPT/HCPCS: 36415; 36416; 71046; 80053; 80162; 81001; 82962; 83735; 83880; 84484; 84550; 85025; 85610; 87086; 93005; 93010; 97110-GO; 97110-GP; 97161-GP; 97165-GO; 97530-GP; 97535-GO; 99306; 99308; 99309; 99316; A9270-GY; J1815-GY; J1940